=== PATIENT | male | born 1940 | race Caucasian/White ===

== ENCOUNTER → 2017-04-17 | Outpatient (CLI) | payer MEDICARE ==
[~2017-04-17] MED LIST: ASPCH81X PO; ATEN-173 PO; FINA5TAB PO; GLC/500 PO; HYDR-5688 PO; IBUP-103 PO; INSDGI SC; LOSA50TA6 PO; METF1000 PO; MULT-506 PO; PRLSR20 PO; ROPI0.5T15 PO; ROSU20TA PO; TAMS0.4C38 PO; TEMA30CA4 PO; TMPOPS15 OPB; TRAV0.00 OPB; VITAMIN C PO; ZINC1CAP PO
--- NOTE | 2017-04-17 15:55 | DIAGNOSTIC IMAGING REPORT ---
PET/CT HEAD AND NECK PROTOCOL CLINICAL HISTORY: Malignant neoplasm, supraglottis. TECHNIQUE: A PET/CT was performed from the skull base through the upper thighs following intravenous injection of 12.75 mCi of F 18 FDG IV. The injection was performed at 12:04 PM on April 17, 2017 and imaging began at 1:05 PM on April 17, 2017. Unenhanced CT was performed for attenuation correction purposes and anatomic localization. COMPARISON STUDY: None. FINDINGS: Head and neck: Intracranial contents are unremarkable on this unenhanced exam. Note is made of asymmetric thickening of the left aspect of the epiglottis with a corresponding mass that measures approximately 2.8 x 1.3 cm. This has marked FDG uptake with an SUV max of 13.5. Note is made of an FDG avid left level 2 lymph node shown image 27 that measures 1.1 x 0.8 cm with an SUV max of 6.6. There is an additional left level 2 lymph node shown on image 33 measures 1.4 x 1.1 cm with marked FDG uptake and an SUV max of 6.2. There is a normal sized right level 2 lymph node shown on image 31 that measures 1 x 0.8 cm with mild cortical thickening and moderate FDG uptake with an SUV max of 4.8. No additional suspicious cervical lymph nodes are identified. Chest: A prominent right paratracheal lymph node shown image 60 measures 9 mm in short axis diameter but has no FDG uptake. This is benign. Moderate cardiomegaly is noted. Lungs are suboptimally assessed due to respiratory motion. There is moderate emphysema. Note is made of a 3 mm lingular nodule shown image 82 and a 3 mm subpleural right middle lobe nodule shown image 90. These are below size threshold for evaluation by PET. No suspicious FDG uptake is identified within the chest. Abdomen and Pelvis: Water attenuation bilateral renal lesions are suboptimally assessed on this exam but favor cysts. There are gallstones within the gallbladder. The infrarenal abdominal aorta is ectatic, measuring 2.8 cm. There is colonic diverticulosis without evidence for acute diverticulitis. There is no abnormal FDG uptake within the abdomen or the pelvis. Musculoskeletal: No suspicious skeletal uptake is identified. IMPRESSION: 1. FDG avid mass centered within the left aspect of the epiglottis consistent with known squamous cell carcinoma. 2. Two mildly enlarged left level 2 FDG avid cervical lymph nodes consistent with paradise spread of disease. Nonenlarged but FDG avid right level 2 cervical lymph node consistent with contralateral paradise spread of disease. No evidence of distant metastatic disease. 3. 3 mm lingular and right middle lobe nodules which are likely benign. A chest CT in 6 months to ensure stability is recommended. 4. Moderate emphysema. Electronically signed by: Eagle Khan M.D. 04/17/2017 3:54 PM Dictated Date/Time: 04/17/2017 2:34 PM
== END | disposition home or self-care (01) ==
LOC: C.PET 11:21
PROVIDERS: ATTEND Otolaryngology
DX: C32.1 Malignant neoplasm of supraglottis (principal)

== ENCOUNTER → 2017-05-24 | Day surgery (SDC) | payer MEDICARE ==
[2017-05-23 08:29] VITALS: Ht 160 cm; Wt 81.8 kg
[~2017-05-24] VITALS: Ht 160 cm; Wt 81.8 kg
[~2017-05-24] MED LIST changes: +ACET-1693 PO; +ASCA500 PO; -ASPCH81X PO; +ASPI81TA28 PO; +CLIN300C2 PO; +CLINDAMYCIN IV 900 MG in DEXTROSE 5% 100ML 100 ML IV STA; +CPR500 PEG; +DAPA1TAB8 PO; +FENTANYL CITRATE INJ 50 MCG/1 ML 2 ML VIAL ONE; +FLUC200T PO; +FNTTP50 TD; -IBUP-103 PO; +LIDOCAINE HCL 2% 2 ML VIAL (20MG/ML) ONE; +MIDAZOLAM HCL 1 MG/ML 2ML VIAL ONE; +MULTTAB5 PO; +ONDA8TAB62 SL; +ONDANSETRON INJ 2 MG/ML 2 ML VIAL ONE; +OXYC-57 PO; +POLY335019 PO; +PRED20TA PO; +PROPOFOL IV EMULSION 10 MG/ML 20 ML VIAL IV ONE; +PSYL48.59 PO; +SENNTAB23 PO; +SODIUM CHLORIDE 0.9% 500ML 500 ML IV ONE
--- NOTE | 2017-05-24 13:37 | Endo History and Physical ---
History & Physical Date of Service: May 24, 2017. Chief Complaint: dysphagia, peg tube placement Referring Physician: Dr. Cali Haines History of Present Illness PEG Past Surgical History Hx Cardiac Surgery: Yes (HEART CATH-NO STENTS) Hx Internal Defibrillator: No Hx Pacemaker: No Hx Abdominal Surgery: No Hx of Implantable Prosthesis: No Hx Post-Op Nausea and Vomiting: No Hx Cancer Surgery: Yes (LIP SKIN EXCISION) Hx Thoracic Surgery: No Hx Orthopedic: Yes (RT ANKLE SX (SCREW)) Hx Urinary Tract Surgery: No Family History None Social History Smoking Status: Former Smoker Hx Substance Use: No Hx Alcohol Use: Yes (1 BEER WEEKLY) Allergies Coded Allergies: Shellfish (Verified Allergy, Intermediate, FACIAL SWELLING, 05/23/17) Penicillins (Verified Allergy, Unknown, ? REMEMBER, 05/23/17) Current Medications Reported Home Medications Medications Dose Route/Sig Max Daily Dose Days Date Category Tylenol (Acetaminophen) 325 Mg Tab 650 Mg PO Q6H PRN 05/23/17 Reported Metamucil (Psyllium) 48.57 % Pow 1 Tsp PO DAILY 05/02/17 Reported Miralax (Polyethylene Glycol 3350) 1 Pow Pow 17 Gm PO DAILY 05/02/17 Reported Farxiga (Dapagliflozin Propanediol) 10 Mg Tab 1 Tab PO QPM 05/02/17 Reported [place] 5MG/325MG (Acetaminophen/Hydrocodone Bitart) Tab 2 Tablets PO Q4 PRN 04/04/17 Rx Travatan Z (Travoprost) 0.004 % Trevon 1 Drops OPB HS 03/28/17 Reported [Vitamin C] 1 Tab PO DAILY 03/28/17 Reported Zinc Sulfate 220 Mg Cap 220 Mg PO DAILY 03/28/17 Reported Multivitamin (Multivitamins) Tab 1 Tab PO DAILY 03/28/17 Reported Lantus (Insulin Glargine) 100 Unit/Ml Inj 35 Units SC QPM 03/28/17 Reported Flomax (Tamsulosin Hcl) 0.4 Mg Cap 0.4 Mg PO HS 03/28/17 Reported Restoril (Temazepam) 30 Mg Cap 30 Mg PO HS 03/28/17 Reported Timolol 0.5% Oph Soln 15 Ml (Timolol Maleate) 15 Ml Soln 1 Drop OPB QAM 03/28/17 Reported Prilosec (Omeprazole) 20 Mg Capcr 20 Mg PO BID 03/28/17 Reported Cozaar (Losartan Potassium) 50 Mg Tab 50 Mg PO QPM 03/28/17 Reported Tenormin (Atenolol) 25 Mg Tab 25 Mg PO QAM 03/28/17 Reported Crestor (Rosuvastatin Calcium) 20 Mg Tab 20 Mg PO HS 03/28/17 Reported Proscar (Finasteride) 5 Mg Tab 5 Mg PO HS 03/28/17 Reported Requip (Ropinirole HCl) 0.5 Mg Tab 0.5 Mg PO HS 03/28/17 Reported Glucophage (Metformin Hcl) 1,000 Mg Tab 1,000 Mg PO BID 03/28/17 Reported Glucophage (Metformin Hcl) 500 Mg Tab 500 Mg PO BID 03/28/17 Reported Vital Signs Weight (Kilograms): 81.82 Height (Feet): 5 Height (Inches): 3 Date Time Temp Pulse Resp B/P (MAP) Pulse Ox O2 Delivery O2 Flow Rate FiO2 05/24/17 12:49 36.8 68 20 125/69 (87) 94 Room Air Physical Exam General Appearance: WD/WN, no apparent distress Respiratory/Chest: Auscultation: breath sounds normal Cardiovascular: Heart Auscultation: RRR Abdomen: Bowel Sounds: normal Inspection & Palpation: soft, non-distended, no tenderness, guarding & rebound Assessment and Plan PEG for dysphagia
--- NOTE | 2017-05-24 14:35 | Anesthesiology Progress Note ---
Anesthesia Post Op Note Date & Time May 24, 2017 at 14:35 Vital Signs Pain Intensity: 0 Vital Signs Past 12 Hours Date Time Temp Pulse Resp B/P (MAP) Pulse Ox O2 Delivery O2 Flow Rate FiO2 05/24/17 12:49 36.8 68 20 125/69 (87) 94 Room Air Notes Mental Status: alert / awake / arousable, participated in evaluation Pt Amnestic to Procedure: Yes Nausea / Vomiting: adequately controlled Pain: adequately controlled Airway Patency, RR, SpO2: stable & adequate BP & HR: stable & adequate Hydration State: stable & adequate Anesthetic Complications: no major complications apparent
--- NOTE | 2017-05-24 14:50 | GI REPORT ---
Procedure Date: 05/24/2017 1:08 PM Procedure: Upper GI endoscopy Indications: Esophageal dysphagia, Personal history of malignant neoplasm Medicines: Propofol per Anesthesia, Cleocin 900 mg IV Complications: No immediate complications. Estimated blood loss: Minimal. Estimated Blood Loss: Estimated blood loss was minimal. Procedure: Pre-Anesthesia Assessment: - Prior to the procedure, a History and Physical was performed, and patient medications and allergies were reviewed. The patient's tolerance of previous anesthesia was also reviewed. The risks and benefits of the procedure and the sedation options and risks were discussed with the patient. All questions were answered, and informed consent was obtained. Prior Anticoagulants: The patient has taken no previous anticoagulant or antiplatelet agents. ASA Grade Assessment: II - A patient with mild systemic disease. After reviewing the risks and benefits, the patient was deemed in satisfactory condition to undergo the procedure. After obtaining informed consent, the endoscope was passed under direct vision. Throughout the procedure, the patient's blood pressure, pulse, and oxygen saturations were monitored continuously. The scope was introduced through the mouth, and advanced to the second part of duodenum. The upper GI endoscopy was accomplished without difficulty. The patient tolerated the procedure well. Findings: The examined esophagus was normal. The entire examined stomach was normal. The examined duodenum was normal. The cardia and gastric fundus were normal on retroflexion. The gastric body was normal. The patient was placed in the supine position for PEG placement. The stomach was insufflated to appose gastric and abdominal nelson. A site was located in the body of the stomach with excellent transillumination and manual external pressure for placement. The abdominal wall was marked and prepped in a sterile manner. The area was anesthetized with 3 mL of 1% lidocaine. The trocar needle was introduced through the abdominal wall and into the stomach under direct endoscopic view. A snare was introduced through the endoscope and opened in the gastric lumen. The guide wire was passed through the trocar and into the open snare. The snare was closed around the guide wire. The endoscope and snare were removed, pulling the wire out through the mouth. A skin incision was made at the site of needle insertion. The externally removable 20 Fr Yonny-Stentys gastrostomy tube was lubricated. The G-tube was tied to the guide wire and pulled through the mouth and into the stomach. The trocar needle was removed, and the gastrostomy tube was pulled out from the stomach through the skin. The external bumper was attached to the gastrostomy tube, and the tube was cut to remove the guide wire. The final position of the gastrostomy tube was confirmed by relook endoscopy, and skin marking noted to be 2 cm at the external bumper. The final tension and compression of the abdominal wall by the PEG tube and external bumper were checked and revealed that the bumper was loose and lightly touching the skin and that the PEG balloon was loose and lightly touching the stomach. The feeding tube was capped, and the tube site cleaned and dressed. Impression: - Normal esophagus. - Normal stomach. - Normal examined duodenum. - Normal gastric body. - An externally removable PEG placement was successfully completed. - No specimens collected. Recommendation: - Discharge patient to home (ambulatory). - Advance diet as tolerated. - Please follow the post-PEG recommendations including: Nutrition consult for formula and volume. - Return to referring physician as previously scheduled. MD Rafael Batista MD 05/24/2017 2:49:31 PM This report has been signed electronically. Note Initiated On: 05/24/2017 1:08 PM I attest to the content of the Intraoperative Record and orders documented therein, exceptions below
--- NOTE | 2017-05-24 14:55 | Discharge Instructions ---
Endoscopy Patient Instructions Date / Procedure(s) Performed May 24, 2017. EGD Allergy Information Coded Allergies: Shellfish (Verified Allergy, Intermediate, FACIAL SWELLING, 05/23/17) Penicillins (Verified Allergy, Unknown, ? REMEMBER, 05/23/17) Discharge Date / Findings May 24, 2017. PEG placement Medication Instructions Stopped Medication(s): Metformin and multivitamin were held. Restart Stopped Medication(s): Reported Home Medications Medications Dose Route/Sig Max Daily Dose Days Date Category Tylenol (Acetaminophen) 325 Mg Tab 650 Mg PO Q6H PRN 05/23/17 Reported Metamucil (Psyllium) 48.57 % Pow 1 Tsp PO DAILY 05/02/17 Reported Miralax (Polyethylene Glycol 3350) 1 Pow Pow 17 Gm PO DAILY 05/02/17 Reported Farxiga (Dapagliflozin Propanediol) 10 Mg Tab 1 Tab PO QPM 05/02/17 Reported [place] 5MG/325MG (Acetaminophen/Hydrocodone Bitart) Tab 2 Tablets PO Q4 PRN 04/04/17 Rx Travatan Z (Travoprost) 0.004 % Trevon 1 Drops OPB HS 03/28/17 Reported [Vitamin C] 1 Tab PO DAILY 03/28/17 Reported Zinc Sulfate 220 Mg Cap 220 Mg PO DAILY 03/28/17 Reported Multivitamin (Multivitamins) Tab 1 Tab PO DAILY 03/28/17 Reported Lantus (Insulin Glargine) 100 Unit/Ml Inj 35 Units SC QPM 03/28/17 Reported Flomax (Tamsulosin Hcl) 0.4 Mg Cap 0.4 Mg PO HS 03/28/17 Reported Restoril (Temazepam) 30 Mg Cap 30 Mg PO HS 03/28/17 Reported Timolol 0.5% Oph Soln 15 Ml (Timolol Maleate) 15 Ml Soln 1 Drop OPB QAM 03/28/17 Reported Prilosec (Omeprazole) 20 Mg Capcr 20 Mg PO BID 03/28/17 Reported Cozaar (Losartan Potassium) 50 Mg Tab 50 Mg PO QPM 03/28/17 Reported Tenormin (Atenolol) 25 Mg Tab 25 Mg PO QAM 03/28/17 Reported Crestor (Rosuvastatin Calcium) 20 Mg Tab 20 Mg PO HS 03/28/17 Reported Proscar (Finasteride) 5 Mg Tab 5 Mg PO HS 03/28/17 Reported Requip (Ropinirole HCl) 0.5 Mg Tab 0.5 Mg PO HS 03/28/17 Reported Glucophage (Metformin Hcl) 1,000 Mg Tab 1,000 Mg PO BID 03/28/17 Reported Glucophage (Metformin Hcl) 500 Mg Tab 500 Mg PO BID 03/28/17 Reported Reported Home Medications Medications Dose Route/Sig Max Daily Dose Days Date Category Tylenol (Acetaminophen) 325 Mg Tab 650 Mg PO Q6H PRN 05/23/17 Reported Metamucil (Psyllium) 48.57 % Pow 1 Tsp PO DAILY 05/02/17 Reported Miralax (Polyethylene Glycol 3350) 1 Pow Pow 17 Gm PO DAILY 05/02/17 Reported Farxiga (Dapagliflozin Propanediol) 10 Mg Tab 1 Tab PO QPM 05/02/17 Reported [place] 5MG/325MG (Acetaminophen/Hydrocodone Bitart) Tab 2 Tablets PO Q4 PRN 04/04/17 Rx Travatan Z (Travoprost) 0.004 % Trevon 1 Drops OPB HS 03/28/17 Reported [Vitamin C] 1 Tab PO DAILY 03/28/17 Reported Zinc Sulfate 220 Mg Cap 220 Mg PO DAILY 03/28/17 Reported Multivitamin (Multivitamins) Tab 1 Tab PO DAILY 03/28/17 Reported Lantus (Insulin Glargine) 100 Unit/Ml Inj 35 Units SC QPM 03/28/17 Reported Flomax (Tamsulosin Hcl) 0.4 Mg Cap 0.4 Mg PO HS 03/28/17 Reported Restoril (Temazepam) 30 Mg Cap 30 Mg PO HS 03/28/17 Reported Timolol 0.5% Oph Soln 15 Ml (Timolol Maleate) 15 Ml Soln 1 Drop OPB QAM 03/28/17 Reported Prilosec (Omeprazole) 20 Mg Capcr 20 Mg PO BID 03/28/17 Reported Cozaar (Losartan Potassium) 50 Mg Tab 50 Mg PO QPM 03/28/17 Reported Tenormin (Atenolol) 25 Mg Tab 25 Mg PO QAM 03/28/17 Reported Crestor (Rosuvastatin Calcium) 20 Mg Tab 20 Mg PO HS 03/28/17 Reported Proscar (Finasteride) 5 Mg Tab 5 Mg PO HS 03/28/17 Reported Requip (Ropinirole HCl) 0.5 Mg Tab 0.5 Mg PO HS 03/28/17 Reported Glucophage (Metformin Hcl) 1,000 Mg Tab 1,000 Mg PO BID 03/28/17 Reported Glucophage (Metformin Hcl) 500 Mg Tab 500 Mg PO BID 03/28/17 Reported Provider Instructions Activity Restrictions - No exercising or heavy lifting for 24 hours. - Do not drink alcohol the day of the procedure. - Do not drive a car or operate machinery until the day after the procedure. - Do not make any important decisions or sign important papers in 24 hours after the procedure. Following Day: - Return to full activity which may include returning to work/school. Diet Start your diet with liquids and light foods (jello, soup, juice, toast). Then eat your usual diet if not nauseated. Treatment For Common After Affects For mild abdominal pain, bloating, or excessive gas: - Rest - Eat lightly - Lie on right side Follow-Up Information Follow-up with Dr. Cali Haines as scheduled Anesthesia Information What You Should Know You have had a procedure that required some medicine to reduce anxiety and discomfort. This treatment is called moderate sedation. After receiving the treatment, you may be sleepy, but you will be able to breathe on your own. The effects of the treatment may last for several hours. Follow these instructions along with Activity/Diet recommendations noted above: * Do NOT do anything where dizziness or clumsiness would be dangerous. * Rest quietly at home today, then you can be up and about tomorrow. * Have a responsible person stay with you the rest of today. * You may have had an I.V. today. If so, you may take the dressing off later today. Recommendations Call your doctor if: * Trouble breathing * Continuous vomiting for more than 24 hours * Temperature above 101 degrees * Severe abdominal pain or bloating * Pain not relieved by pain medicine ordered * There is increased drainage or redness from any incision * A large amount of rectal bleeding greater than 2-3 tablespoons. (If you had a polyp/s removed or have hemorrhoids, a small amount of blood - from the rectum is to be expected.) * You have any unanswered questions or concerns. IN THE EVENT OF A SERIOUS EMERGENCY, GO TO THE NEAREST EMERGENCY ROOM Your discharge instructions were prepared by provider Rafael Anthony. Patient Instructions Signature Page Tristen Ewing Patient (or Guardian) Signature/Date: I have read and understand the instructions given to me by my caregivers. Caregiver/RN/Doctor Signature/Date: The above-named patient and/or guardian has received patient instructions on this date. + Original Patient Signature Page (only) stays with chart. Please make copy for patient.
[2017-05-24 15:02] VITALS: BP 120/76; PULSE 72; O2SAT 95
--- NOTE | 2017-05-25 12:31 | GASTROENTEROLOGY PROGRESS NOTE ---
DATE: 05/25/2017 TIME: 11:30 a.m. SUBJECTIVE: I spoke to the patient again today at approximately 11:20 a.m. Mrs. Ewing reports that the patient did well overnight with decreased abdominal pressure and discomfort. I had spoken with her last evening (Saturday) around 7:00 as she called through the answering service reporting that the patient had abdominal pain after eating tomato soup, grilled cheese and mild products, a few hours after peg placement. Last evening, I had asked her to stick mostly with clear liquids in small amounts for the remainder of the night and can slowly begin to advance diet on Saturday. When I spoke with her a short time ago(Saturday), she said that she was just awakening up, but there were no reports of fever, abdominal pain overnight. I again asked her to go mostly with clear liquids or either full liquids this morning and afternoon, in small frequent volumes. At that point, if he is doing well, he can start to advance his meals to a light diet this evening and progress towards is routine diet afterwards. I also spoke with her regarding questions of the Y connection and that both ports should be irrigated, each day to maintain patency. All of her questions were answered. She knows to contact the service or present to the Emergency Room if there are any acute changes. KELLIE
== END | disposition home or self-care (01) ==
LOC: C.GI 11:24
PROVIDERS: ATTEND Internal Medicine Gastroenterology
DX: R13.10 Dysphagia, unspecified (principal); Z79.4 Long term (current) use of insulin; Z79.899 Other long term (current) drug therapy; Z79.84 Long term (current) use of oral hypoglycemic drugs

== ENCOUNTER 2017-05-29 06:40 | Day surgery (SDC) | payer MEDICARE ==
[2017-05-23 08:41] VITALS: BMI 31.0
[~2017-05-29] VITALS: Ht 160 cm; Wt 78.5 kg
[~2017-05-29 06:40] MED LIST changes: -ASCA500 PO; -ASPI81TA28 PO; +ATROPINE SULFATE 0.1 MG/ML 5ML SYR IV PRN; -CLIN300C2 PO; +CLINDAMYCIN 900MG IV SCH; -CLINDAMYCIN IV 900 MG in DEXTROSE 5% 100ML 100 ML IV STA; +CLINDAMYCIN IV 900 MG in DEXTROSE 5% 50ML IV SCH; -CPR500 PEG; +EpHEDrine SULFATE INJ 50 MG/ML AMP IV PRN; +FENTANYL CITRATE INJ 50 MCG/1 ML 2 ML VIAL IV PRN; -FENTANYL CITRATE INJ 50 MCG/1 ML 2 ML VIAL ONE; -FLUC200T PO; -FNTTP50 TD; +HYDROmorphone INJ 1 MG/ML SYR IV PRN; +LACTATED RINGER'S 1000ML 1,000 ML IV SCH; -LIDOCAINE HCL 2% 2 ML VIAL (20MG/ML) ONE; -MIDAZOLAM HCL 1 MG/ML 2ML VIAL ONE; -MULTTAB5 PO; -ONDA8TAB62 SL; +ONDANSETRON INJ 2 MG/ML 2 ML VIAL IV PRN; -ONDANSETRON INJ 2 MG/ML 2 ML VIAL ONE; -OXYC-57 PO; -PRED20TA PO; -PROPOFOL IV EMULSION 10 MG/ML 20 ML VIAL IV ONE; -SENNTAB23 PO; -SODIUM CHLORIDE 0.9% 500ML 500 ML IV ONE
[2017-05-29 07:00] VITALS: BP 125/69; PULSE 82; TEMP 37.5; O2SAT 94; Ht 160 cm; Wt 78.5 kg
[2017-05-29] MEDS ORDERED: FNTTP50 TD (07:22)
[2017-05-29 08:03] LABS: HEMATOCRIT 33.1 % (42-52); HEMOGLOBIN 11.7 g/dL (14.0-18.0); MEAN CELL VOLUME 86.4 fL (80-100); MEAN CORPUSCULAR HEMOGLOBIN 30.5 pg (25-34); RED CELL DISTRIBUTION WIDTH CV 15.2 % (11.5-14.5); RED CELL DISTRIBUTION WIDTH SD 47.7 fL (36.4-46.3); WHITE BLOOD COUNT 10.74 K/uL (4.8-10.8)
[2017-05-29 08:06] LABS: MEAN CORPUSCULAR HGB CONC 35.3 g/dl (32-36)
[2017-05-29 08:23] LABS: MEAN PLATELET VOLUME 9.9 fL (7.4-10.4); PLATELET COUNT 92 K/uL (130-400)
[2017-05-29] MEDS ORDERED: FENTANYL CITRATE INJ 50 MCG/1 ML 2 ML VIAL ONE (08:51)
[2017-05-29] MEDS ORDERED: MIDAZOLAM HCL 1 MG/ML 2ML VIAL ONE ×2 (08:51→09:23)
--- NOTE | 2017-05-29 08:51 | History & Physical Bridge Note ---
H&P Re-Evaluation Bridge Note: I have examined the patient, reviewed the History & Physical and in the interval since the performance of the History & Physical I have noted the following changes of clinical significance: No changes noted
[2017-05-29] MEDS ORDERED: ONDANSETRON INJ 2 MG/ML 2 ML VIAL ONE (08:55)
[2017-05-29] MEDS ORDERED: LIDOCAINE HCL 2% 2 ML VIAL (20MG/ML) ONE (08:55)
[2017-05-29] MEDS ORDERED: BUPIVACAINE 0.5 % 5 MG/1 ML MPF 30ML VIAL ONE (08:56)
[2017-05-29] MEDS ORDERED: LIDOCAINE/EPINEPHRINE 1% 20 ML VIAL ONE (08:56)
[2017-05-29] MEDS ORDERED: HEPARIN SOD (PORCINE) 5000 UNIT/ML 1 ML VIAL ONE (08:59)
[2017-05-29] MEDS ORDERED: PROPOFOL IV EMULSION 10 MG/ML 20 ML VIAL IV ONE ×2 (09:23→10:45)
[2017-05-29] MEDS ORDERED: CONRAY 30% 150ML BOTTLE ONE (10:14)
[2017-05-29] MEDS ORDERED: OPTIRAY 300 IV ONE (10:17)
[2017-05-29] MEDS ORDERED: EpHEDrine SULFATE 50MG/5ML SYR ONE (10:46)
[2017-05-29] MEDS ORDERED: PHENYLEPHRINE 100MCG/ML 5ML SYR ONE (10:46)
--- NOTE | 2017-05-29 10:49 | [facility] Post Operative Brief Note ---
Immediate Operative Summary Operative Date May 29, 2017. Pre-Operative Diagnosis Epiglottis Cancer Post-Operative Diagnosis Epiglottis Cancer Procedure(s) Performed Insertion of Mediport with Fluoroscopy Surgeon Dr. Blanca Counter Supply Worker Surgeon(s) Romy Houston PA-C Estimated Blood Loss 8 mL Findings Access in the left internal jugular vein with ultrasound guidance performed. After placement of the port we were unable to draw blood but it seemed to flush adequately. Contrast was then placed through the port and it appeared that we were either in a small branch vessel or extravascular. Port was removed and we reattempted access of the left internal jugular but the wire would not pass into the superior vena cava. We then accessed the left subclavian vein without difficulty and the wire was placed in the superior vena cava. The port was placed and it kayla and flushed easily. Specimens None per surgeon Drains none Anesthesia MAC/local Complication(s) None Disposition Recovery Room / PACU
[2017-05-29] MEDS ORDERED: SODIUM CHLORIDE 0.9% 1000ML 1,000 ML IV SCH (11:00)
[2017-05-29] MEDS ORDERED: ONDANSETRON INJ 2 MG/ML 2 ML VIAL IV PRN (11:00)
[2017-05-29] MEDS ORDERED: OXYCODONE/ACETAMINOPHEN 5-325 TAB PO PRN ×2 (11:00)
--- NOTE | 2017-05-29 11:00 | [facility] Operative Report ---
Operative Report Operative Date May 29, 2017. Pre-Operative Diagnosis Epiglottis Cancer Post-Operative Diagnosis same Procedure(s) Performed Left subclavian vein PowerPort placement Surgeon Dr. Blanca Home Care Chaplain Surgeon(s) Romy Houston PA-C Estimated Blood Loss 8 mL Findings Access in the left internal jugular vein with ultrasound guidance performed. After placement of the port we were unable to draw blood but it seemed to flush adequately. Contrast was then placed through the port and it appeared that we were either in a small branch vessel or extravascular. Port was removed and we reattempted access of the left internal jugular but the wire would not pass into the superior vena cava. We then accessed the left subclavian vein without difficulty and the wire was placed in the superior vena cava. The port was placed and it kayla and flushed easily. Specimens None per surgeon Drains none Anesthesia MAC/local Complication(s) None Disposition Recovery Room / PACU Indications 76-year-old male with recently diagnosed epiglottis cancer, requires port placement for chemotherapy access. Plan for port placement. The risks of the procedure were discussed, all questions were answered, and the patient agreed to proceed with surgery as planned. Description of Procedure The patient was properly identified, consented, and taken to the operating room where he was placed in the supine position with both arms tucked and a shoulder roll placed vertically. Monitored anesthesia care was induced. SCDs and a safety belt were placed. Preoperative antibiotics were administered. The patient's chest and neck was prepped and draped in the standard sterile fashion. Surgical timeout was performed and all parties were in agreement that this was the correct patient and procedure to be performed and we continued as planned. The patient was placed in Trendelenburg position. Local anesthetic was injected along the skin incision. Using real-time ultrasound guidance the left internal jugular vein was accessed. The wire was placed and appeared to go into the superior vena cava on fluoroscopy. A transverse skin incision was made in the left chest and a pocket was created for the port. The tunneling device was used to pull the port through the chest incision and into the neck incision. The dilator and peel-away sheath were inserted over the wire. The catheter was then inserted through the peel-away sheath and fluoroscopy confirmed placement into the superior vena cava. The catheter was cut and attached to the port. We attempted to draw blood from the port but this was unsuccessful. It seemed to flush without difficulty. We repositioned the catheter and again attempted to draw blood, however there was significant resistance. We then used IV contrast and it appeared that we were either in a small branch vessel or were extravascular. The port was removed, we attempted to re-access the left internal jugular vein which was successful. However, the wire was unable to be placed into the superior vena cava. At this point we decided to access the left subclavian vein. The left subclavian vein was accessed on the first attempt without difficulty. The wire was placed and passed into the superior vena cava. A new introducer and peel- away sheath was placed and the wire and introducer were removed. A new catheter was then placed into the left subclavian vein and fluoroscopy confirmed entry into the superior vena cava. Catheter was cut and attached to the port. The port was secured into place with 3-0 Prolene sutures. A final x- ray revealed good placement of the port. The wound was irrigated and hemostasis was confirmed. The skin was closed with interrupted 3-0 Vicryl deep dermal sutures, followed by 4-0 Monocryl running subcuticular suture. Dermabond was placed over the wound. The port was accessed and kayla blood easily and flushed easily. It was flushed with heparinized saline. The physician's fast food sales assistant was essential for positioning, access, retraction and exposure, and closure. The patient taken to the PACU where he recovered without apparent incident. All sponge, instrument and needle counts were correct at the conclusion of the procedure. The patient tolerated the procedure well. Chest x-ray was pending at the conclusion of the case. I attest to the content of the Intraoperative Record and any orders documented therein. Any exceptions are noted below.
--- NOTE | 2017-05-29 11:04 | Discharge Instructions ---
Discharge Instructions Date of Service May 29, 2017. 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 Instructions / Follow-Up Instructions / Follow-Up Please follow-up with Dr. Blanca in 1-2 weeks for incision check. Please call the office at [phone] to make a follow-up appointment if you do not have one already. Please call the office with any questions or concerns. Current Hospital Diet Patient's current hospital diet: Discharge Diet Recommended Diet: Regular Diet Procedures Procedures Performed: Insertion of Mediport with Fluoroscopy Pending Studies Studies pending at discharge: no Medical Emergencies . Who to Call and When: Medical Emergencies: If at any time you feel your situation is an emergency, please call 911 immediately. . Non-Emergent Contact Non-Emergency issues call your: Primary Care Provider, Surgeon Call Non-Emergent contact if: temperature is above 101.5, your pain is not controlled, wound has increased drainage, wound has increased redness . "Provider Documentation" section prepared by Romy Cutler. . VTE Core Measure Inpt VTE Proph given/why not?: SCD's [place] Drug Monitoring Program Search Results: patient reviewed within database, no issues identified
--- NOTE | 2017-05-29 11:30 | DIAGNOSTIC IMAGING REPORT ---
CHEST ONE VIEW PORTABLE HISTORY: s/p port placement COMPARISON: PET CT 04/17/2017. FINDINGS: Low lung volumes with mild interstitial thickening which is likely chronic. No pleural effusions. No pneumothorax. Left subclavian Port-A-Cath terminates at the superior caval atrial junction. The heart is mildly enlarged. This may be accentuated by the low lung volumes. IMPRESSION: Left subclavian Port-A-Cath terminates at the superior cavoatrial junction. No pneumothorax. Electronically signed by: Charan Nash M.D. 05/29/2017 11:28 AM Dictated Date/Time: 05/29/2017 11:17 AM
[2017-05-29 11:50] VITALS: BP 106/58; PULSE 87; TEMP 36.3; O2SAT 94
--- NOTE | 2017-05-29 11:53 | Anesthesiology Progress Note ---
Anesthesia Post Op Note Date & Time May 29, 2017 at 11:53 Vital Signs Pain Intensity: 2 Vital Signs Past 12 Hours Date Time Temp Pulse Resp B/P (MAP) Pulse Ox O2 Delivery O2 Flow Rate FiO2 05/29/17 11:50 36.3 85 16 106/58 94 Room Air 05/29/17 11:35 36.3 85 16 103/58 94 Room Air 05/29/17 11:20 36.3 83 16 100/58 93 Room Air 05/29/17 11:10 83 16 93/53 99 Oxymask 7 05/29/17 11:00 36 85 16 81/54 99 Oxymask 7 05/29/17 07:00 37.5 82 20 125/69 (87) 94 Room Air Notes Mental Status: alert / awake / arousable, participated in evaluation Pt Amnestic to Procedure: Yes Nausea / Vomiting: adequately controlled Pain: adequately controlled Airway Patency, RR, SpO2: stable & adequate BP & HR: stable & adequate Hydration State: stable & adequate Anesthetic Complications: no major complications apparent Doing well. No complaints. VSS.
[2017-05-29 12:12] VITALS: BP 105/56; PULSE 87; TEMP 36.9; O2SAT 92
--- NOTE | 2017-05-29 12:36 | [facility] Operative Report ---
Operative Report Operative Date May 29, 2017. Pre-Operative Diagnosis Epiglottis Cancer Post-Operative Diagnosis same Surgeon Dr. Blanca Findings Fluoroscopy was used for placement of the left subclavian vein port. A total of 158 seconds fluoroscopy time was performed. I attest to the content of the Intraoperative Record and any orders documented therein. Any exceptions are noted below.
[2017-05-29 12:45] VITALS: BP 93/54; PULSE 87; TEMP 37.1; O2SAT 91
[2017-05-29 13:15] VITALS: BP 100/56; PULSE 85; TEMP 37.2; O2SAT 91
[2017-05-29 13:44] VITALS: BP 104/63; PULSE 91; TEMP 37.2; O2SAT 93
[2017-06-11] MEDS ORDERED: OXYC-57 PO (14:59)
[2017-07-22] MEDS ORDERED: ONDA8TAB62 SL (09:44)
[2017-11-29] MEDS ORDERED: INSDGI SC (13:30)
[2017-11-29] MEDS ORDERED: ASCA500 PO (13:33)
[2017-11-29] MEDS ORDERED: ASPI81TA28 PO (13:33)
[2017-11-29] MEDS ORDERED: MULTTAB5 PO (13:33)
[2017-11-29] MEDS ORDERED: ZINC1CAP PO (13:33)
[2017-12-12] MEDS ORDERED: TAMS0.4C38 PO (15:55)
[2017-12-12] MEDS ORDERED: ROSU20TA PO (15:55)
[2017-12-12] MEDS ORDERED: CLIN300C2 PO (19:20)
[2017-12-12] MEDS ORDERED: PRED20TA PO (19:20)
== END 2017-05-29 13:47 | disposition home or self-care (01) ==
LOC: C.ACU 06:40
PROVIDERS: ATTEND Surgery
DX: C32.1 Malignant neoplasm of supraglottis (principal); I87.8 Other specified disorders of veins; K21.9 Gastro-esophageal reflux disease without esophagitis; M19.90 Unspecified osteoarthritis, unspecified site; H40.9 Unspecified glaucoma; E78.00 Pure hypercholesterolemia, unspecified; I10 Essential (primary) hypertension; G47.33 Obstructive sleep apnea (adult) (pediatric); Z99.89 Dependence on other enabling machines and devices; E11.9 Type 2 diabetes mellitus without complications; Z85.818 Personal history of malignant neoplasm of other sites of lip, oral cavity, and pharynx; Z83.1 Family history of other infectious and parasitic diseases; Z82.49 Family history of ischemic heart disease and other diseases of the circulatory system; Z83.3 Family history of diabetes mellitus; Z80.1 Family history of malignant neoplasm of trachea, bronchus and lung; Z80.42 Family history of malignant neoplasm of prostate; Z87.891 Personal history of nicotine dependence; Z88.0 Allergy status to penicillin; Z79.4 Long term (current) use of insulin

== ENCOUNTER → 2017-05-31 | Outpatient (CLI) | payer MEDICARE ==
[~2017-05-31] MED LIST changes: +ASCA500 PO; +ASPI81TA28 PO; -ATROPINE SULFATE 0.1 MG/ML 5ML SYR IV PRN; +CLIN300C2 PO; -CLINDAMYCIN 900MG IV SCH; -CLINDAMYCIN IV 900 MG in DEXTROSE 5% 50ML IV SCH; +CPR500 PEG; -EpHEDrine SULFATE INJ 50 MG/ML AMP IV PRN; -FENTANYL CITRATE INJ 50 MCG/1 ML 2 ML VIAL IV PRN; +FLUC200T PO; +FNTTP50 TD; -HYDROmorphone INJ 1 MG/ML SYR IV PRN; -LACTATED RINGER'S 1000ML 1,000 ML IV SCH; +MULTTAB5 PO; +ONDA8TAB62 SL; -ONDANSETRON INJ 2 MG/ML 2 ML VIAL IV PRN; +OXYC-57 PO; +PRED20TA PO
--- NOTE | 2017-05-31 13:49 | DIAGNOSTIC IMAGING REPORT ---
ULTRASOUND OF THE CAROTID ARTERIES CLINICAL HISTORY: Head and neck cancer. COMPARISON STUDY: PET CT dated 04/17/2017. TECHNIQUE: Real-time, grayscale, and color Doppler sonography of the carotid arteries is performed. Images are reviewed in the transverse and longitudinal planes. FINDINGS: Blood pressure in the right arm measures 130/88 and blood pressure in the left arm measures 129/70. The carotid arteries are patent bilaterally and demonstrate antegrade flow. There is mild atherosclerotic plaque seen. Normal doppler arterial waveforms are seen throughout. Velocity measurements are listed below. Common carotid peak systolic velocity (cm/sec): RIGHT: 106 LEFT: 104 ICA proximal peak systolic velocity (cm/sec): RIGHT: 102 LEFT: 111 ICA mid peak systolic velocity (cm/sec): RIGHT: 158 LEFT: 97 ICA distal peak systolic velocity (cm/sec): RIGHT: 129 LEFT: 87 ICA/CC peak systolic ratio: RIGHT: 2.1 LEFT: 1.1 Antegrade flow was shown in the vertebral arteries. The external carotid arteries are patent. A 1.4 cm hypoechoic soft tissue lesion is identified in the right cervical chain, a 2.2 cm hypoechoic lesion is seen in the left cervical chain. These are suspicious for metastatic lymphadenopathy. Additional smaller metastatic lesions are suspected. IMPRESSION: 1. There is no sonographic evidence of hemodynamically significant stenosis in the right or left carotid arterial system. Mildly elevated velocities within the midportion of the right internal carotid artery are likely related to vascular tortuosity. There is no significant stenosis seen in the grayscale images. 2. Antegrade flow is shown in the vertebral arteries. 3. Metastatic cervical lymphadenopathy is suspected bilaterally. Electronically signed by: Rodger Lowery M.D. 05/31/2017 1:48 PM Dictated Date/Time: 05/31/2017 1:44 PM
--- NOTE | 2017-06-05 13:29 | CODING QUERY MEDICAL NECESSITY ---
SUPPORTING DIAGNOSIS NEEDED A supporting diagnosis is required for the test/procedure performed on this patient in order for us to be reimbursed by the patient's insurance. Please provide a supporting diagnosis for the following test/procedure listed below next to the test name along with your signature. *If there is no additional diagnosis for this patient that would support the following test/procedure please document that below next to the test/procedure. Test(s)/Procedure(s) that require a supporting diagnosis: * US CAROTID DOPPLER NECK ARTERY DIAGNOSIS: Provider Signature: Date: Thank you Priti Rubio [employer] Management Once completed, please kindly fax back to [phone] For questions please call [phone]
== END | disposition home or self-care (01) ==
LOC: C.ULTR 12:51
PROVIDERS: ATTEND Physician Assistant Medical
DX: C32.1 Malignant neoplasm of supraglottis (principal)

== ENCOUNTER 2017-06-24 13:11 | Inpatient (IN) | payer MEDICARE, OTHER ==
[~2017-06-24] VITALS: Ht 160 cm; Wt 74.5 kg
[~2017-06-24 13:11] MED LIST changes: -ACET-1693 PO; +ACET325T96 PO; -ASCA500 PO; -ASPI81TA28 PO; -CLIN300C2 PO; -CPR500 PEG; -FLUC200T PO; -HYDR-5688 PO; -MULTTAB5 PO; -ONDA8TAB62 SL; -PRED20TA PO
[2017-06-24] MEDS ORDERED: ONDANSETRON INJ 2 MG/ML 2 ML VIAL IV STA (13:29)
[2017-06-24] MEDS ORDERED: SODIUM CHLORIDE 0.9% 1000ML 1,000 ML IV STA ×2 (13:29→14:41)
[2017-06-24 14:05] LABS: BASO % 0.2 %; BASO ABS # 0.03 K/uL (0-0.2); EOS % 0.1 %; EOS ABS # 0.01 K/uL (0-0.5); HEMATOCRIT 29.9 % (42-52); HEMOGLOBIN 10.4 g/dL (14.0-18.0); IG# 0.63 K/uL (0.00-0.02); LYMPH % 5.3 %; LYMPH ABS # 0.69 K/uL (1.2-3.4); MEAN CELL VOLUME 88.5 fL (80-100); MEAN CORPUSCULAR HEMOGLOBIN 30.8 pg (25-34); MEAN CORPUSCULAR HGB CONC 34.8 g/dl (32-36); MEAN PLATELET VOLUME 9.8 fL (7.4-10.4); MONO % 16.6 %; MONO ABS # 2.16 K/uL (0.11-0.59); NUCLEATED RED BLOOD CELL ABS 0.04 K/uL (0-0); PLATELET COUNT 226 K/uL (130-400); RED CELL DISTRIBUTION WIDTH CV 16.2 % (11.5-14.5); RED CELL DISTRIBUTION WIDTH SD 49.1 fL (36.4-46.3); WHITE BLOOD COUNT 13.02 K/uL (4.8-10.8)
[2017-06-24 14:25] LABS: ALBUMIN 2.7 gm/dl (3.4-5.0); ALT/SGPT 16 U/L (12-78); AST/SGOT 10 U/L (15-37); BLOOD UREA NITROGEN 41 mg/dl (7-18); CALCIUM 8.6 mg/dl (8.5-10.1); CARBON DIOXIDE 29 mmol/L (21-32); CREATININE 1.43 mg/dl (0.60-1.40); GLUCOSE 218 mg/dl (70-99); LIPASE 79 U/L (73-393); POTASSIUM 4.6 mmol/L (3.5-5.1); SODIUM 128 mmol/L (136-145)
[2017-06-24 14:26] LABS: PTT PATIENT 25.2 SECONDS (21.0-31.0)
--- NOTE | 2017-06-24 14:26 | DIAGNOSTIC IMAGING REPORT ---
SINGLE VIEW CHEST CLINICAL HISTORY: Weakness. Nausea and vomiting. Diarrhea. FINDINGS: An AP, portable, upright chest radiograph is compared to study dated 05/29/2017 and correlated with PET/CT dated 04/17/2017. The examination is degraded by portable technique and patient rotation. A left subclavian central venous infusion port is unchanged in position. The heart is mildly enlarged and there is atherosclerotic calcification of the thoracic ureter. The pulmonary vasculature is noncongested. Emphysema and chronic interstitial thickening our similar to previous. No airspace consolidation or pleural effusion is identified. No pneumothorax is seen. The skeletal structures are osteopenic. Degenerative change is seen throughout the thoracic spine. IMPRESSION: Cardiomegaly and emphysema with no acute cardiopulmonary abnormality. Electronically signed by: Rodger Lowery M.D. 06/24/2017 2:25 PM Dictated Date/Time: 06/24/2017 2:20 PM
[2017-06-24 14:36] LABS: ALKALINE PHOSPHATASE 114 U/L (45-117); TOTAL PROTEIN 6.7 gm/dl (6.4-8.2)
[2017-06-24] MEDS ORDERED: MAGNESIUM SULFATE 1GM / D5W 1 GM BAG IV STA (14:41)
--- NOTE | 2017-06-24 15:30 | History and Physical ---
History & Physical Date & Time of Service: Jun 24, 2017 at 15:26 Chief Complaint: Nausea, Vomiting, Diarrhea Primary Care Physician: Cali Haines M.D. History of Present Illness Source: patient This is a 76 yo M with PMHx of SCC of the epiglottis T2, M2 C stage IV, originally diagnosed on 04/04/17 currently undergoing cisplatin and XRT which began on 05/28/17 and is followed by Dr. Costello. Other PMHx includes HTN, HLD, BPH, DM II, GERD, and restless leg syndrome. The patient presents with intractable nausea and vomiting ongoing for the last 2-3 days. He does take in crushed meds orally and tolerates warm liquids. The patient notes losing approximately 18 pounds since the beginning of chemotherapy which is partially due to metallic taste in his mouth, but also due to pain with any swallowing. The patient has a PEG tube and has been using Nutren 2.04 ounces every 2 hours to help reduce the amount of nausea and vomiting. He denies any abdominal pain. The patient's also reports a history of having increased diarrhea in the last 2 days as well. He is feeling increasingly weak and is sleeping a large portion of the day. The patient has undergone 3 rounds of chemotherapy so far, and at least 3 weeks of daily radiation therapy. XRT is scheduled to complete around July 11. Here in the ER, Na= 128, creatinine is elevated at 1.43, WBC =13 K with left shift. Mag = 1.3 and has been replaced with 2 g via IV. Past Medical/Surgical History Medical Problems: (1) DM II (diabetes mellitus, type II), controlled (2) GERD (gastroesophageal reflux disease) (3) Glaucoma (4) HLD (hyperlipidemia) (5) HTN (hypertension) (6) Intractable nausea and vomiting (7) MYRIAM on CPAP (8) Osteoarthritis (9) Squamous cell cancer of epiglottis Surgical Problems: (1) S/P percutaneous endoscopic gastrostomy (PEG) tube placement Family History Pneumonia Heart disease DM II Lung Cancer Prostate cancer Social History Smoking Status: Former Smoker Smokeless Tobacco Use: No Alcohol Use: none Allergies Coded Allergies: Shellfish (Verified Allergy, Intermediate, FACIAL SWELLING, 06/24/17) Penicillins (Verified Allergy, Unknown, ? REMEMBER, 06/24/17) Home Medications Scheduled Atenolol (Tenormin), 25 MG PO QPM Dapagliflozin Propanediol (Farxiga), 1 TAB PO QPM Fentanyl (Duragesic), 50 MCG TD [id number] Finasteride (Proscar), 5 MG PO HS Insulin Glargine (Lantus), 35 UNITS SC QAM Losartan Potassium (Cozaar), 50 MG PO QPM Metformin Hcl (Glucophage), 500 MG PO BID Metformin Hcl (Glucophage), 1,000 MG PO BID Multivitamin (Multivitamin), 1 TAB PO DAILY Omeprazole (Prilosec), 20 MG PO BID Polyethylene Glycol 3350 (Miralax), 17 GM PO DAILY Psyllium (Metamucil), 1 TSP PO DAILY Ropinirole (Requip), 0.5 MG PO HS Rosuvastatin Calcium (Crestor), 20 MG PO HS Tamsulosin Hcl (Flomax), 0.4 MG PO HS Temazepam (Restoril), 30 MG PO HS Timolol Maleate (Timolol 0.5% Oph Soln 15 Ml), 1 DROP OPB QAM Travoprost (Travatan Z), 1 DROPS OPB HS Zinc Sulfate (Zinc Sulfate), 220 MG PO DAILY [Vitamin C], 1 TAB PO DAILY Scheduled PRN Acetaminophen Tab (Tylenol), 650 MG PO Q6H PRN for Pain Oxycodone/Acetaminophen 5MG/325MG (Percocet 5MG/325MG), 2 TABLETS PO Q12 PRN for Pain Review of Systems Constitutional: No fever, sweats or chills, + increased weakness and lethargy Eyes: No diplopia, no worsening or blurred vision ENT: normal hearing, no trouble swallowing Respiratory: No cough, sputum, dyspnea at rest or on exertion Cardiovascular: No chest pain, tightness or palpitations Abdomen: See history of present illness Musculoskeletal: No joint pain, calf pain, swelling Neurologic: No weakness, numbness/tingling, or balance problems Psychiatric: No anxiety or depression Skin: No rash or itch Physical Exam Vital Signs Date Time Temp Pulse Resp B/P (MAP) Pulse Ox O2 Delivery O2 Flow Rate FiO2 06/24/17 15:05 85 16 118/63 97 Room Air 06/24/17 13:59 84 06/24/17 13:23 37.2 89 20 108/73 95 Room Air General: awake, alert, + mild distress Head: Normocephalic, atraumatic ENT: PERRL, EOMI, no pharyngeal exudate, mucous membranes dry, + oral candidiasis, erythema over the right side of neck Chest: Clear to auscultation, on room air, no adventitious breath sounds, + Mediport in left chest wall Cardiac: Regular rate and rhythm, soft systolic murmur, no JVD, normal peripheral pulses, good capillary refill Abdominal: NABS x 4 quadrants, + PEG tube in place, no surrounding erythema, soft, nontender to palpation, no rebound, guarding or tenderness Extremities: Normal inspection, no peripheral edema or erythema, calfs nontender to palpation Psych: Normal mood and affect Neuro: AAO x 3, strength intact bilaterally and related 5/5, no motor deficits, speech is clear, no peripheral sensory deficits Diagnostics Laboratory Results Results Past 24 Hours Test 06/24/17 13:52 Range/Units White Blood Count 13.02 4.8-10.8 K/uL Red Blood Count 3.38 4.7-6.1 M/uL Hemoglobin 10.4 14.0-18.0 g/dL Hematocrit 29.9 42-52 % Mean Corpuscular Volume 88.5 80-100 fL Mean Corpuscular Hemoglobin 30.8 25-34 pg Mean Corpuscular Hemoglobin Concent 34.8 32-36 g/dl Platelet Count 226 130-400 K/uL Mean Platelet Volume 9.8 7.4-10.4 fL Neutrophils (%) (Auto) 73.0 % Lymphocytes (%) (Auto) 5.3 % Monocytes (%) (Auto) 16.6 % Eosinophils (%) (Auto) 0.1 % Basophils (%) (Auto) 0.2 % Neutrophils # (Auto) 9.50 1.4-6.5 K/uL Lymphocytes # (Auto) 0.69 1.2-3.4 K/uL Monocytes # (Auto) 2.16 0.11-0.59 K/uL Eosinophils # (Auto) 0.01 0-0.5 K/uL Basophils # (Auto) 0.03 0-0.2 K/uL RDW Standard Deviation 49.1 36.4-46.3 fL RDW Coefficient of Variation 16.2 11.5-14.5 % Immature Granulocyte % (Auto) 4.8 % Immature Granulocyte # (Auto) 0.63 0.00-0.02 K/uL Nucleated RBC Absolute Count (auto) 0.04 0-0 K/uL Nucleated Red Blood Cells % 0.3 % Prothrombin Time 10.9 9.0-12.0 SECONDS Prothromb Time International Ratio 1.0 0.9-1.1 Activated Partial Thromboplast Time 25.2 21.0-31.0 SECONDS Partial Thromboplastin Ratio 1.0 Sodium Level 128 136-145 mmol/L Potassium Level 4.6 3.5-5.1 mmol/L Chloride Level 93 98-107 mmol/L Carbon Dioxide Level 29 21-32 mmol/L Anion Gap 6.0 3-11 mmol/L Blood Urea Nitrogen 41 7-18 mg/dl Creatinine 1.43 0.60-1.40 mg/dl Est Creatinine Clear Calc Drug Dose 39.4 ml/min Estimated GFR () 54.4 Estimated GFR (Non- 46.9 BUN/Creatinine Ratio 28.9 10-20 Random Glucose 218 70-99 mg/dl Calcium Level 8.6 8.5-10.1 mg/dl Magnesium Level 1.3 1.8-2.4 mg/dl Total Bilirubin 0.3 0.2-1 mg/dl Direct Bilirubin < 0.1 0-0.2 mg/dl Aspartate Amino Transf (AST/SGOT) 10 15-37 U/L Alanine Aminotransferase (ALT/SGPT) 16 12-78 U/L Alkaline Phosphatase 114 45-117 U/L Troponin I < 0.015 0-0.045 ng/ml Total Protein 6.7 6.4-8.2 gm/dl Albumin 2.7 3.4-5.0 gm/dl Lipase 79 73-393 U/L Thyroid Stimulating Hormone (TSH) 1.040 0.300-4.500 uIu/ml Diagnostic Radiology [~ rep ct add3]] SINGLE VIEW CHEST CLINICAL HISTORY: Weakness. Nausea and vomiting. Diarrhea. FINDINGS: An AP, portable, upright chest radiograph is compared to study dated 05/29/2017 and correlated with PET/CT dated 04/17/2017. The examination is degraded by portable technique and patient rotation. A left subclavian central venous infusion port is unchanged in position. The heart is mildly enlarged and there is atherosclerotic calcification of the thoracic ureter. The pulmonary vasculature is noncongested. Emphysema and chronic interstitial thickening our similar to previous. No airspace consolidation or pleural effusion is identified. No pneumothorax is seen. The skeletal structures are osteopenic. Degenerative change is seen throughout the thoracic spine. IMPRESSION: Cardiomegaly and emphysema with no acute cardiopulmonary abnormality. Electronically signed by: Rodger Lowery M.D. 06/24/2017 2:25 PM Dictated Date/Time: 06/24/2017 2:20 PM The status of this report is Signed. EKG Normal sinus rhythm Normal ECG No previous ECGs available Vent. rate 86 BPM FL interval 146 ms QRS duration 76 ms QT/QTc 330/394 ms P-R-T axes 10 1 11 Impression Assessment and Plan This is a 76 yo M with PMHx of SCC of the epiglottis T2, M2 C stage IV, originally diagnosed on 04/04/17 currently undergoing cisplatin and XRT which began on 05/28/17 and is followed by Dr. Costello. Other PMHx includes HTN, HLD, BPH, DM II, GERD, and restless leg syndrome. SCC of the epiglottis T2, M2 C stage IV Intractable nausea and vomiting SAHIL - Admit to MedSurg - Oncology consulted, patient follows with Dr. Costello as an outpatient - Order Zofran 4 mg IV Q4H, Compazine 10 mg q6h, Phenergan IV as anti-emetics - Continue NSS at 100 ml/hr x 1 day and monitor PRP, Cr. elevated at 1.43 up slightly from baseline of 1.3 - Continue analgesia with fentanyl 50 mcg daily, and percocets 2 tabs PO Q6H prn - Will order dietitian consult as the patient uses Nutren 2.0 supplemental tube feedings, 4oz Q2H. Patient has a weight loss of 18 pounds beginning chemotherapy - PT and OT to eval DM type II - Reduce Lantus in half tonight, until pt able to tolerate tube feeds at baseline. Hold metformin with elevated creatinine of 1.43 Home dosing is equal to 35 units every afternoon - ISS with Accu-Cheks ACHS MYRIAM ion CPAP - Will order in house CPAP machine, patient does not wear supplemental O2 at baseline HTN - continue losartan 25 mg daily, Hyperlipidemia - Continue Crestor 20 mg daily BPH - Continue Flomax 5 mg daily GERD - Continue Prilosec 20 mg daily DVT ppx: heparin, teds, scds CODE STATUS: DO NOT RESUSCITATE, this was discussed with the patient and his at bedside Disposition: Patient from home, lives with [facility] Med/Surg Resuscitation Status DO NOT RESUSCITATE VTE Prophylaxis Risk Level: Low Given or contraindicated: Unfractionated heparin SQ, T.E.D. Stockings, SCD's Reviewed: Pt Seen/Exam by Me History Pt is feeling somewhat improved s/p IVF in the ED. states that [facility] The last time was Saturday. This has helped somewhat. They have HH nursing 1x/week right now. Pt is reliant on PEG tube for feeding due to metallic flavor with PO but he is able to eat if he likes. He did have a craving for a meatball sub last week but only managed a few bites. He is not tolerating his TF. No choking with emesis. No chest pain or SOB. Agree with HPI/ROS as noted by PA. General Appearance: WD/WN, no apparent distress Respiratory: normal breath sounds, no respiratory distress Cardiovascular: normal peripheral pulses, regular rate, rhythm Gastrointestinal: non tender, soft Extremities: non-tender, no pedal edema Neurologic/Psychiatric: alert, normal mood/affect, oriented x 3 Skin Characteristics: normal color, warm/dry Assessment/Plan Agree with plan as outlined above Intractable n/v, likely related to chemo Monitor on IVF ?? Possible to set up home IVF with HH nursing as pt does have a port in place?? No signs of infection, monitor
[2017-06-24] MEDS ORDERED: FNTTP50 TD (15:52)
--- NOTE | 2017-06-24 15:57 | EMERGENCY ROOM VISIT NOTE ---
History Report prepared by Alfred: Trisha Moran Under the Supervision of: Dr. Guerrero Li M.D. First contact with patient: 13:27 Chief Complaint: VOMITING Stated Complaint: NAUSEA, VOMITING, DIARRHEA Nursing Triage Summary: Pt presents with who reports n/v/d that has been intermittent since starting chemo/radiation in Mar. Pt currently undergoing chemo and radiation for throat cancer. Last chemo was 06/14/17. Last radiation was 06/21/17. History of Present Illness The patient is a 76 year old male who presents to the Emergency Room with complaints of intermittent vomiting starting a couple weeks ago. The patient is currently undergoing chemo for throat cancer. The patient has had intermittent nausea, vomiting, and diarrhea since starting chemo. He usually has relief of his nausea with Zofran, but he has not had any relief today. He is currently nauseated. He spoke with a nurse from his doctor's office who suggested he go to the ED. His notes that he has appeared pale since starting chemo. He has a history of diabetes. His blood sugar has been up and down. Pt denies LOC, headache, fevers, chills, diaphoresis, visual changes, neck pain, chest pain, breathing difficulties, abdominal pain, back pain, melena, hematochezia, urinary symptoms, numbness, weakness, lymphadenopathy, rash, or other complaints. Source of History: patient, spouse/significant other Onset: couple weeks ago Position: other (global) Quality: other (vomiting) Timing: intermittent Associated Symptoms: + nausea, + diarrhea Review of Systems See HPI for pertinent positives and negatives. A total of ten systems were reviewed and were otherwise negative. Past Medical & Surgical Medical Problems: (1) Carcinoma of supraglottis (2) Intractable nausea and vomiting (3) Squamous cell cancer of epiglottis Family History No pertinent family history stated. Social History Smoking Status: Former Smoker Marital Status: Housing Status: lives with significant other Occupation Status: retired Current/Historical Medications Scheduled Atenolol (Tenormin), 25 MG PO QPM Dapagliflozin Propanediol (Farxiga), 1 TAB PO QPM Fentanyl (Duragesic), Unknown Dose TD CQ72HR Fentanyl (Duragesic), 50 MCG TD CQ72HR Finasteride (Proscar), 5 MG PO HS Insulin Glargine (Lantus), 35 UNITS SC QPM Losartan Potassium (Cozaar), 50 MG PO QPM Metformin Hcl (Glucophage), 500 MG PO BID Metformin Hcl (Glucophage), 1,000 MG PO BID Multivitamin (Multivitamin), 1 TAB PO DAILY Omeprazole (Prilosec), 20 MG PO BID Polyethylene Glycol 3350 (Miralax), 17 GM PO DAILY Psyllium (Metamucil), 1 TSP PO DAILY Ropinirole (Requip), 0.5 MG PO HS Rosuvastatin Calcium (Crestor), 20 MG PO HS Tamsulosin Hcl (Flomax), 0.4 MG PO HS Temazepam (Restoril), 30 MG PO HS Timolol Maleate (Timolol 0.5% Oph Soln 15 Ml), 1 DROP OPB QAM Travoprost (Travatan Z), 1 DROPS OPB HS Zinc Sulfate (Zinc Sulfate), 220 MG PO DAILY [Vitamin C], 1 TAB PO DAILY Scheduled PRN Acetaminophen Tab (Tylenol), 650 MG PO Q6H PRN for Pain Oxycodone/Acetaminophen 5MG/325MG (Percocet 5MG/325MG), 2 TABLETS PO Q12 PRN for Pain Allergies Coded Allergies: Shellfish (Verified Allergy, Intermediate, FACIAL SWELLING, 06/24/17) Penicillins (Verified Allergy, Unknown, ? REMEMBER, 06/24/17) Physical Exam Vital Signs Date Time Temp Pulse Resp B/P (MAP) Pulse Ox O2 Delivery O2 Flow Rate FiO2 06/24/17 15:05 85 16 118/63 97 Room Air 06/24/17 13:59 84 06/24/17 13:23 37.2 89 20 108/73 95 Room Air Physical Exam GENERAL: Awake, alert, weak and tired-appearing, in no distress HENT: Normocephalic, atraumatic. Oropharynx unremarkable. EYES: Pale conjunctiva. Sclera non-icteric. NECK: Supple. No nuchal rigidity. FROM. No JVD. RESPIRATORY: Clear to auscultation. CARDIAC: Regular rate, normal rhythm. Extremities warm and well perfused. Pulses equal. ABDOMEN: Soft, non-distended. Feeding tube in the epigastrium. No tenderness to palpation. No rebound or guarding. No masses. RECTAL: Deferred. MUSCULOSKELETAL: Chest examination reveals port in the left upper chest, no tenderness. The back is symmetrical on inspection without obvious abnormality. There is no CVA tenderness to palpation. No joint edema. LOWER EXTREMITIES: Calves are equal size bilaterally and non-tender. No edema. No discoloration. NEURO: Normal sensorium. No sensory or motor deficits noted. SKIN: No rash or jaundice noted. Medical Decision & Procedures ER Provider Diagnostic Interpretation: Xray results as stated below per my and radiologist interpretation: SINGLE VIEW CHEST CLINICAL HISTORY: Weakness. Nausea and vomiting. Diarrhea. FINDINGS: An AP, portable, upright chest radiograph is compared to study dated 05/29/2017 and correlated with PET/CT dated 04/17/2017. The examination is degraded by portable technique and patient rotation. A left subclavian central venous infusion port is unchanged in position. The heart is mildly enlarged and there is atherosclerotic calcification of the thoracic ureter. The pulmonary vasculature is noncongested. Emphysema and chronic interstitial thickening our similar to previous. No airspace consolidation or pleural effusion is identified. No pneumothorax is seen. The skeletal structures are osteopenic. Degenerative change is seen throughout the thoracic spine. IMPRESSION: Cardiomegaly and emphysema with no acute cardiopulmonary abnormality. Electronically signed by: Rodger Lowery M.D. 06/24/2017 2:25 PM Dictated Date/Time: 06/24/2017 2:20 PM Laboratory Results 06/24/17 13:52 Red Blood Count 3.38, Mean Corpuscular Volume 88.5, Mean Corpuscular Hemoglobin 30.8, Mean Corpuscular Hemoglobin Concent 34.8, Mean Platelet Volume 9.8, Neutrophils (%) (Auto) 73.0, Lymphocytes (%) (Auto) 5.3, Monocytes (%) (Auto) 16.6, Eosinophils (%) (Auto) 0.1, Basophils (%) (Auto) 0.2, Neutrophils # (Auto ) 9.50, Lymphocytes # (Auto) 0.69, Monocytes # (Auto) 2.16, Eosinophils # (Auto ) 0.01, Basophils # (Auto) 0.03 06/24/17 13:52 Test 06/24/17 13:52 White Blood Count 13.02 K/uL (4.8-10.8) Red Blood Count 3.38 M/uL (4.7-6.1) Hemoglobin 10.4 g/dL (14.0-18.0) Hematocrit 29.9 % (42-52) Mean Corpuscular Volume 88.5 fL (80-100) Mean Corpuscular Hemoglobin 30.8 pg (25-34) Mean Corpuscular Hemoglobin Concent 34.8 g/dl (32-36) Platelet Count 226 K/uL (130-400) Mean Platelet Volume 9.8 fL (7.4-10.4) Neutrophils (%) (Auto) 73.0 % Lymphocytes (%) (Auto) 5.3 % Monocytes (%) (Auto) 16.6 % Eosinophils (%) (Auto) 0.1 % Basophils (%) (Auto) 0.2 % Neutrophils # (Auto) 9.50 K/uL (1.4-6.5) Lymphocytes # (Auto) 0.69 K/uL (1.2-3.4) Monocytes # (Auto) 2.16 K/uL (0.11-0.59) Eosinophils # (Auto) 0.01 K/uL (0-0.5) Basophils # (Auto) 0.03 K/uL (0-0.2) RDW Standard Deviation 49.1 fL (36.4-46.3) RDW Coefficient of Variation 16.2 % (11.5-14.5) Immature Granulocyte % (Auto) 4.8 % Immature Granulocyte # (Auto) 0.63 K/uL (0.00-0.02) Nucleated RBC Absolute Count (auto) 0.04 K/uL (0-0) Nucleated Red Blood Cells % 0.3 % Prothrombin Time 10.9 SECONDS (9.0-12.0) Prothromb Time International Ratio 1.0 (0.9-1.1) Activated Partial Thromboplast Time 25.2 SECONDS (21.0-31.0) Partial Thromboplastin Ratio 1.0 Anion Gap 6.0 mmol/L (3-11) Est Creatinine Clear Calc Drug Dose 39.4 ml/min Estimated GFR () 54.4 Estimated GFR (Non- 46.9 BUN/Creatinine Ratio 28.9 (10-20) Calcium Level 8.6 mg/dl (8.5-10.1) Magnesium Level 1.3 mg/dl (1.8-2.4) Total Bilirubin 0.3 mg/dl (0.2-1) Direct Bilirubin < 0.1 mg/dl (0-0.2) Aspartate Amino Transf (AST/SGOT) 10 U/L (15-37) Alanine Aminotransferase (ALT/SGPT) 16 U/L (12-78) Alkaline Phosphatase 114 U/L (45-117) Troponin I < 0.015 ng/ml (0-0.045) Total Protein 6.7 gm/dl (6.4-8.2) Albumin 2.7 gm/dl (3.4-5.0) Lipase 79 U/L (73-393) Thyroid Stimulating Hormone (TSH) 1.040 uIu/ml (0.300-4.500) Laboratory results reviewed by me Medications Administered Medications (Trade) Dose Ordered Sig/Sotero Route Start Time Stop Time Status Last Admin Dose Admin Sodium Chloride 1,000 ml @ 999 mls/hr Q1H1M STAT IV 06/24/17 13:29 06/24/17 14:29 DC 06/24/17 14:01 999 MLS/HR Ondansetron HCl (Zofran Inj) 4 mg NOW STAT IV 06/24/17 13:29 06/24/17 13:32 DC 06/24/17 14:00 4 MG Magnesium Sulfate (Magnesium Sulfate) 2 gm NOW STAT IV 06/24/17 14:41 06/24/17 14:42 DC 06/24/17 15:04 2 GM Sodium Chloride 1,000 ml @ 125 mls/hr Q8H STAT IV 06/24/17 14:41 06/24/17 22:40 06/24/17 15:05 125 MLS/HR ECG Indication: nausea Rate (beats per minute): 86 Rhythm: normal sinus Findings: no acute ischemic change, no ectopy Change: Patient's electrocardiogram was interpreted by me. ED Course 1329: Zofran Inj 4 mg IV, NSS 1000 ml @ 999 mls/hr IV. 1336: The patient was evaluated in room B9. A complete history and physical exam was performed. 1418: I reevaluated the patient. He is getting fluids. 1441: Magnesium Sulfate 2 gm IV, NSS 1000 ml @ 125 mls/hr IV. 1444: Upon reexamination, the patient was resting comfortably. I discussed the test results and treatment plan with him and his . They verbalized agreement of the plan. The patient will be evaluated for further management. 1447: I discussed the patient's case with DAREN Valdez hospitalist. The patient will be evaluated for further treatment and disposition. Medical Decision Prior records/ancillary studies reviewed and summarized above. Nursing notes reviewed and agree them. Additional history obtained from the . The patient's history was concerning for weakness. Differential diagnosis: Etiologies such as metabolic, infection, hypo/hyperglycemia, electrolyte abnormalities, cardiac sources, intracerebral event, toxicologic, neurologic, as well as others were entertained. Physical examination: As above. ER treatment provided: IV Lock IV normal saline hydration IV Zofran IV magnesium On reassessment the patient felt better. Diagnostics interpretation by me: ECG: Normal at 86 bpm. The labs revealed a mild anemia on CBC. Chemistry panel revealed hyponatremia and hypomagnesemia. Cardiac markers negative. Stool studies pending. Imaging studies: X-ray as above. The patient is dehydrated. He has hypomagnesemia and hyponatremia.I gave my usual and customary discussion regarding this issue. Consultation: A consultation was placed with the hospitalist. The case was discussed and diagnostics were reviewed. The patient was evaluated in the ER for further treatment. Medication Reconcilliation Current Medication List: was personally reviewed by me Blood Pressure Screening Patient's blood pressure: Normal blood pressure Blood pressure disposition: Did not require urgent referral Consults Time Called: 1443 Consulting Physician: DAREN Valdez hospitalist Returned Call: [phone] Discussed the patient's case. The patient will be evaluated for further treatment and disposition. Impression Primary Impression: Nausea, vomiting, and diarrhea Additional Impressions: Hypomagnesemia Hyponatremia Scribe Attestation The scribe's documentation has been prepared under my direction and personally reviewed by me in its entirety. I confirm that the note above accurately reflects all work, treatment, procedures, and medical decision making performed by me. Departure Information Dispostion Being Evaluated By Hospitalist Referrals Cali Haines M.D. (PCP) Patient Instructions My [facility] Problem Qualifiers
[2017-06-24] MEDS ORDERED: MAGNESIUM HYDROXIDE SUSP 30 ML UDC PO PRN (16:00)
[2017-06-24] MEDS ORDERED: GLUCOSE 10 TABS/TUBE PO PRN (16:00)
[2017-06-24] MEDS ORDERED: GLUCOSE 40% GEL 15 GM TUBE PO PRN (16:00)
[2017-06-24] MEDS ORDERED: ACETAMINOPHEN 325 MG TAB PO PRN ×2 (16:00)
[2017-06-24] MEDS ORDERED: GLUCAGON FOR INJ 1 MG VIAL SQ PRN (16:00)
[2017-06-24] MEDS ORDERED: DEXTROSE 50% 50 ML SYR IV PRN (16:00)
[2017-06-24] MEDS ORDERED: PROCHLORPERAZINE MALEATE 10 MG TAB PO PRN (16:30)
[2017-06-24] MEDS ORDERED: PROMETHAZINE HCL INJ 25 MG in SODIUM CHLORIDE 0.9% 50ML 50 ML IV PRN (16:30)
[2017-06-24 17:11] VITALS: BP 143/68; PULSE 83; TEMP 37.4; O2SAT 95
[2017-06-24 18:04] VITALS: BP 143/68; PULSE 83; TEMP 37.4; O2SAT 97; BMI 29.6
--- NOTE | 2017-06-24 18:08 | Oncology Consultation ---
Oncology/Heme Consultation Date of Consultation: Jun 24, 2017. Attending Physician: Priti Mendez DO Reason for Consultation: History of squamous cell carcinoma of the epiglottis History of Present Illness Mr. Ewing is a 76-year-old gentleman with a history of squamous cell carcinoma of the epiglottis. He has been receiving combined modality therapy. The diagnosis dates back to April of last year. A PET scan done at that time showed asymmetric thickening of the left aspect of the epiglottis with a corresponding mass is 2.8 cm in size. There is marked FDG uptake. There was also FDG avid left level II lymph node measuring 1.1 x 1.8 cm in size as well as additional left sided lymph nodes also showing FDG uptake. He is been treated with radiation therapy along with weekly cis-shishmaref ira. His last dose of cisplatin was 10 days ago. He is admitted with repeated nausea and vomiting. He states he has lost 10-12 pounds in the past month or so. He denies any fever. He denies any shortness of breath. He denies any change in bowel habits. He has had creatinines in the past that have been borderline elevated. He has a background history of type 2 diabetes mellitus. He has a feeding tube in place that he states he uses every day. P-16 stain was performed on the biopsy of the epiglottis. This P-16 stain was estimated at less than 5%. Again a biopsy of the epiglottis revealed a mildly differentiated invasive keratinizing squamous cell carcinoma Past Medical/Surgical History Medical Problems: (1) Hypomagnesemia Status: Acute (2) Hyponatremia Status: Acute (3) Nausea, vomiting, and diarrhea Status: Acute Family History Records reflect that his mother passed at 88 years of age secondary to natural causes. Father at age of 80 secondary to pneumonia. His brother has a history of prostate carcinoma. Another brother at age 63 from prostate carcinoma. There is a third brother at the age of 58 with lung cancer Social History Former smoker negative for alcohol use Smoking Status: Former Smoker Smokeless Tobacco Use: No Alcohol Use: none Marital Status: Housing Status: lives with significant other Occupation Status: retired Allergies Coded Allergies: Shellfish (Verified Allergy, Intermediate, FACIAL SWELLING, 06/24/17) Penicillins (Verified Allergy, Unknown, ? REMEMBER, 06/24/17) Home Medications Scheduled Atenolol (Tenormin), 25 MG PO QPM Dapagliflozin Propanediol (Farxiga), 1 TAB PO QPM Fentanyl (Duragesic), 50 MCG TD CQ72HR Finasteride (Proscar), 5 MG PO HS Insulin Glargine (Lantus), 35 UNITS SC QAM Losartan Potassium (Cozaar), 50 MG PO QPM Metformin Hcl (Glucophage), 500 MG PO BID Metformin Hcl (Glucophage), 1,000 MG PO BID Multivitamin (Multivitamin), 1 TAB PO DAILY Omeprazole (Prilosec), 20 MG PO BID Polyethylene Glycol 3350 (Miralax), 17 GM PO DAILY Psyllium (Metamucil), 1 TSP PO DAILY Ropinirole (Requip), 0.5 MG PO HS Rosuvastatin Calcium (Crestor), 20 MG PO HS Tamsulosin Hcl (Flomax), 0.4 MG PO HS Temazepam (Restoril), 30 MG PO HS Timolol Maleate (Timolol 0.5% Oph Soln 15 Ml), 1 DROP OPB QAM Travoprost (Travatan Z), 1 DROPS OPB HS Zinc Sulfate (Zinc Sulfate), 220 MG PO DAILY [Vitamin C], 1 TAB PO DAILY Scheduled PRN Acetaminophen Tab (Tylenol), 650 MG PO Q6H PRN for Pain Oxycodone/Acetaminophen 5MG/325MG (Percocet 5MG/325MG), 2 TABLETS PO Q12 PRN for Pain Current Inpatient Medications Current Inpatient Medications Medications (Trade) Dose Ordered Sig/Sotero Route Start Time Stop Time Status Last Admin Dose Admin Sodium Chloride 1,000 ml @ 125 mls/hr Q8H STAT IV 06/24/17 14:41 06/24/17 22:40 06/24/17 15:05 125 MLS/HR Heparin Sodium (Porcine) (Heparin Sq 5000 Unit/0.5ml) 5,000 unit Q8H SQ 06/24/17 22:00 07/24/17 21:59 Acetaminophen (Tylenol Tab) 650 mg Q4H PRN PO 06/24/17 16:00 07/24/17 15:59 Magnesium Hydroxide (Milk Of Magnesia Susp) 30 ml Q6H PRN PO 06/24/17 16:00 07/24/17 15:59 Ondansetron HCl (Zofran Inj) 4 mg Q6H PRN IV 06/24/17 16:00 07/24/17 15:59 Atenolol (Tenormin Tab) 25 mg QPM PO 06/24/17 21:00 07/24/17 20:59 Fentanyl (Duragesic Patch) 50 mcg Q72H TD 06/26/17 09:00 07/10/17 08:59 Finasteride (Proscar Tab) 5 mg HS PO 06/24/17 21:00 07/24/17 20:59 Losartan Potassium (coZAAR TAB) 50 mg QPM PO 06/24/17 21:00 07/24/17 20:59 Multivitamins (Multivitamin Tab) 1 tab DAILY PO 06/25/17 08:00 07/25/17 08:59 Oxycodone/ Acetaminophen (Percocet 5-325mg Tab) 2 tab Q12 PRN PO 06/24/17 16:00 07/08/17 15:59 Ropinirole HCl (Requip Tab) 0.5 mg HS PO 06/24/17 21:00 07/24/17 20:59 Rosuvastatin Calcium (Crestor Tab) 20 mg HS PO 06/24/17 21:00 07/24/17 20:59 Tamsulosin HCl (Flomax Cap) 0.4 mg HS PO 06/24/17 21:00 07/24/17 20:59 Temazepam (Restoril Cap) 30 mg HS PO 06/24/17 21:00 07/24/17 20:59 Timolol Maleate (Timoptic 0.5% Oph Soln) 1 drops QAM OPB 06/25/17 08:00 07/25/17 08:59 Travoprost (Travatan Z) 1 drops HS OPB 06/24/17 21:00 07/24/17 20:59 Zinc Sulfate (Zinc Sulfate Cap) 220 mg DAILY PO 06/25/17 08:00 07/25/17 08:59 Sodium Chloride 1,000 ml @ 100 mls/hr Q10H IV 06/24/17 22:45 06/25/17 22:44 Insulin Glargine (Lantus Solostar Pen) 17 units QPM SC 06/24/17 21:00 07/24/17 20:59 Insulin Aspart (novoLOG ASPART) SLIDING SCALE If C... ACHS SC 06/24/17 16:00 07/24/17 15:59 Glucose (Glucose 40% Gel) 15-30 GRAMS 15 GRAMS... UD PRN PO 06/24/17 16:00 07/24/17 15:59 Glucose (Glucose Chew Tab) 4-8 Tablets 4 Tabl... UD PRN PO 06/24/17 16:00 07/24/17 15:59 Dextrose (Dextrose 50% 50ML Syringe) 25-50ML OF 50% DW IV FOR... UD PRN IV 06/24/17 16:00 07/24/17 15:59 Glucagon (Glucagon Inj) 1 mg UD PRN SQ 06/24/17 16:00 07/24/17 15:59 Promethazine HCl 25 mg/Sodium Chloride 51 ml @ 204 mls/hr Q6H PRN IV 06/24/17 16:30 07/24/17 16:29 Miscellaneous (Fentanyl Patch Remove & Waste) 1 ea Q3D@0859 N/A 06/26/17 08:59 07/26/17 08:58 Miscellaneous Information (Check Fentanyl Patch Placement) 1 ea QS N/A 06/25/17 00:00 07/25/17 00:00 Prochlorperazine Maleate (Compazine Tab) 10 mg Q6 PRN PO 06/24/17 16:30 07/24/17 16:29 Review of Systems Constitutional: Negative for night sweats, or fever Eyes: Negative for event change of vision ENT: Negative for epistaxis, nasal discharge, he does have a sore throat,no deafness Cardiovascular: Negative for chest pain, palpitations, dizziness, diaphoresis Respiratory: Negative for new shortness of breath,hemoptysis, or purulent cough Gastrointestinal: Negative for diarrhea, hematemesis, melena, positive nausea vomiting and dysphagia Integumentary (skin): Negative for rash or jaundice discoloration Genitourinary: Negative for urinary frequency, hematuria, or dysuria Neurological: Negative for weakness, seizure activity, headache, or dizziness Lymphatic/Hematologic: Negative for petechiae, bleeding or new adenopathy Musculoskeletal: Negative for new joint or back pain Allergic/Immunologic: Negative for unusual rash or pruritis. Physical Exam Date Time Temp Pulse Resp B/P (MAP) Pulse Ox O2 Delivery O2 Flow Rate FiO2 06/24/17 17:11 37.4 83 18 143/68 (93) 95 Room Air 06/24/17 15:05 85 16 118/63 97 Room Air 06/24/17 13:59 84 06/24/17 13:23 37.2 89 20 108/73 95 Room Air Constitutional: vitals are stable. Eyes: Eyes are EAGLE EOMI without conjuctival erythema or icterus. ENT: External examination was negative for masses. He is marked coating of his retropharyngeal area consistent with a heavy coat of thrush Neck: Negative for masses or palpable thyromegaly Respiratory: Lung sounds were generally clear bilaterally Cardiovascular: Heart was RRR without significant murmur, gallops aoe rubs Gastrointestinal: No palpable hepatic or splenomegaly. The abdomen was soft with normal bowel sounds. Feeding tube is in place. Lymphatic system: there was no palpable peripheral lymphadenopathy Musculoskeletal System: The musculoskeletal system seemed concordant with age. Skin: The skin was negative for jaundice. Neurologic exam: The exam was negative for any focal findings. Deep tendon reflexes were equal and symmetrical. Psychiatric exam: Was essentially negative with normal mood and effect. Extremities: negative for edema Laboratory Results Last 24 Hours Test 06/24/17 13:52 06/24/17 16:08 06/24/17 17:48 White Blood Count 13.02 K/uL Red Blood Count 3.38 M/uL Hemoglobin 10.4 g/dL Hematocrit 29.9 % Mean Corpuscular Volume 88.5 fL Mean Corpuscular Hemoglobin 30.8 pg Mean Corpuscular Hemoglobin Concent 34.8 g/dl Platelet Count 226 K/uL Mean Platelet Volume 9.8 fL Neutrophils (%) (Auto) 73.0 % Lymphocytes (%) (Auto) 5.3 % Monocytes (%) (Auto) 16.6 % Eosinophils (%) (Auto) 0.1 % Basophils (%) (Auto) 0.2 % Neutrophils # (Auto) 9.50 K/uL Lymphocytes # (Auto) 0.69 K/uL Monocytes # (Auto) 2.16 K/uL Eosinophils # (Auto) 0.01 K/uL Basophils # (Auto) 0.03 K/uL RDW Standard Deviation 49.1 fL RDW Coefficient of Variation 16.2 % Immature Granulocyte % (Auto) 4.8 % Immature Granulocyte # (Auto) 0.63 K/uL Nucleated RBC Absolute Count (auto) 0.04 K/uL Nucleated Red Blood Cells % 0.3 % Prothrombin Time 10.9 SECONDS Prothromb Time International Ratio 1.0 Activated Partial Thromboplast Time 25.2 SECONDS Partial Thromboplastin Ratio 1.0 Sodium Level 128 mmol/L Potassium Level 4.6 mmol/L Chloride Level 93 mmol/L Carbon Dioxide Level 29 mmol/L Anion Gap 6.0 mmol/L Blood Urea Nitrogen 41 mg/dl Creatinine 1.43 mg/dl Est Creatinine Clear Calc Drug Dose 39.4 ml/min Estimated GFR () 54.4 Estimated GFR (Non- 46.9 BUN/Creatinine Ratio 28.9 Random Glucose 218 mg/dl Calcium Level 8.6 mg/dl Magnesium Level 1.3 mg/dl Total Bilirubin 0.3 mg/dl Direct Bilirubin < 0.1 mg/dl Aspartate Amino Transf (AST/SGOT) 10 U/L Alanine Aminotransferase (ALT/SGPT) 16 U/L Alkaline Phosphatase 114 U/L Troponin I < 0.015 ng/ml Total Protein 6.7 gm/dl Albumin 2.7 gm/dl Lipase 79 U/L Thyroid Stimulating Hormone (TSH) 1.040 uIu/ml Urine Color YELLOW Urine Appearance CLEAR Urine pH 5.0 Urine Specific [place] 1.025 Urine Protein NEG Urine Glucose (UA) 3+ Urine Ketones NEG Urine Occult Blood NEG Urine Nitrite NEG Urine Bilirubin NEG Urine Urobilinogen NEG Urine Leukocyte Esterase NEG Bedside Glucose 157 mg/dl Assessment & Plan Squamous cell carcinoma of the epiglottis. He has been treated with combined modality therapy. He is been given cis-shishmaref ira and has had recurrent nausea vomiting. His last dose of cisplatin was 10 days ago. His blood counts are quite good. I doubt very much that his nausea and vomiting is all attributed to chemotherapy. He does have a very heavy coat of what appears to be thrush coating his retropharyngeal area and is quite possible that that is responsible for his nausea or vomiting. He does also take medicines that could be responsible such as the codeines. I would suggest that he receive Diflucan 200 mg IV daily for his apparent esophageal thrush. Zofran 8 mg IV every 6 8 hours can be used for nausea. We will follow along with you.
[2017-06-24] MEDS: INSULIN ASPART 100 UNITS/ML 3 ML PEN SC SCH ×2 (18:58→20:31)
[2017-06-24 19:34] VITALS: BP 107/67; PULSE 89; TEMP 37; O2SAT 97
[2017-06-24] MEDS ORDERED: LIDOCAINE HCL 2% VISCOUS SOLN 60 ML, DiphenhydrAMINE HCL SYRUP 150 MG, ALUMINUM/MAGNESI... MT PRN ×4 (20:00)
[2017-06-24] MEDS ORDERED: MAGIC SWIZZLE PO PRN (20:00)
[2017-06-24] MEDS: FLUCONAZOLE / NSS 200 MG in PREMIXED NSS 100 ML IV SCH (20:29)
[2017-06-24] MEDS: CHECK FENTANYL PATCH PLACEMENT SCH (20:30)
[2017-06-24] MEDS: ROPINIROLE HCL 1 MG TAB PO SCH (20:34)
[2017-06-24] MEDS: LOSARTAN POTASSIUM 50 MG TAB PO SCH (20:34)
[2017-06-24] MEDS: ROSUVASTATIN CALCIUM 20 MG TAB PO SCH (20:34)
[2017-06-24] MEDS: FINASTERIDE 5 MG TAB PO SCH (20:34)
[2017-06-24] MEDS: TAMSULOSIN HCL 0.4 MG CAP PO SCH (20:35)
[2017-06-24] MEDS: INSULIN GLARGINE SOLOSTAR 100 UNITS/ML 3 ML PEN SC SCH (20:36)
[2017-06-24] MEDS: TRAVOPROST Z 0.004% OPH SOLN 2.5 ML BTL OPB SCH (20:36)
[2017-06-24] MEDS: TEMAZEPAM 15 MG CAP PO SCH (20:36)
[2017-06-24] MEDS: HEPARIN SOD 5000 UNIT/0.5 ML CARP SQ SCH (20:38)
[2017-06-24 23:34] VITALS: BP 128/79; PULSE 81; TEMP 37.2; O2SAT 92
[2017-06-25] VITALS (8 sets, daily range): BP systolic 108–156; BP diastolic 67–90; PULSE 77–88; TEMP 36.6–37.5; O2SAT 92–97; BMI 29.2
[2017-06-25] MEDS: SODIUM CHLORIDE 0.9% 1000ML 1,000 ML IV SCH ×3 (00:25→17:32)
[2017-06-25 06:50] LABS: BASO % 0.2 %; BASO ABS # 0.02 K/uL (0-0.2); EOS % 0.1 %; EOS ABS # 0.01 K/uL (0-0.5); HEMATOCRIT 28.3 % (42-52); HEMOGLOBIN 9.6 g/dL (14.0-18.0); IG# 0.37 K/uL (0.00-0.02); LYMPH % 9.2 %; LYMPH ABS # 0.81 K/uL (1.2-3.4); MEAN CELL VOLUME 88.4 fL (80-100); MEAN CORPUSCULAR HGB CONC 33.9 g/dl (32-36); MEAN PLATELET VOLUME 9.6 fL (7.4-10.4); MONO % 16.3 %; MONO ABS # 1.43 K/uL (0.11-0.59); NEUT ABS # 6.12 K/uL (1.4-6.5); NUCLEATED RED BLOOD CELL ABS 0.03 K/uL (0-0); PLATELET COUNT 202 K/uL (130-400); RED CELL DISTRIBUTION WIDTH CV 16.4 % (11.5-14.5); RED CELL DISTRIBUTION WIDTH SD 50.5 fL (36.4-46.3); WHITE BLOOD COUNT 8.76 K/uL (4.8-10.8)
[2017-06-25 07:29] LABS: CALCIUM 8.7 mg/dl (8.5-10.1); CREATININE 0.91 mg/dl (0.60-1.40); POTASSIUM 4.3 mmol/L (3.5-5.1)
[2017-06-25] MEDS: MULTIVITAMIN TAB PO SCH (08:00)
[2017-06-25] MEDS ORDERED: FLUCONAZOLE SUSP 100 MG/10 ML UDP PO SCH (08:00)
[2017-06-25] MEDS: ZINC SULFATE 220 MG CAP PO SCH (08:00)
--- NOTE | 2017-06-25 08:10 | Clinical Documentation Query ---
MARJAN Parra : CLINICAL DOCUMENTATION QUERY This is a 76 yo M with PMHx of SCC of the epiglottis T2, M2 C stage IV, originally diagnosed on 04/04/17 currently undergoing cisplatin and XRT which began on 05/28/17. Documentation includes the following: "Will order dietitian consult as the patient uses Nutren 2.0 supplemental tube feedings, 4oz Q2H. Patient has a weight loss of 18 pounds beginning chemotherapy". Patient has lost 10% of body weight since May 20, 2017. Oral intake is poor per patient. In your clinical opinion is this patient being managed for: ( x ) Severe protein-calorie malnutrition ( ) Not Agree ( ) Other explanation of clinical findings (Please Explain) ( ) Unable to determine (Please Define) ( ) Need to Discuss The medical record reflects the following clinical findings, treatment, and risk factors. Clinical Indicators: As above. Significant weight loss over short interval, unintentional Treatment: Burglary Investigator consultation, tube feeds Risk Factors: SCCA of epiglottis, oral candidiasis, medications Please clarify and document your clinical opinion in the progress notes and discharge summary. Terms such as "probable", "suspected", "likely", "questionable", "possible", or "still to be ruled out" are acceptable. IF IN AGREEMENT, YOU MUST DOCUMENT ABOVE DIAGNOSTIC STATEMENT IN DAILY PROGRESS NOTES AND DISCHARGE SUMMARY. This document is not part of the patient's record. Thank You, Jimmy Bedoya, JEANMARIE [phone]
[2017-06-25] MEDS: ONDANSETRON INJ 2 MG/ML 2 ML VIAL IV PRN ×2 (08:25→14:16)
[2017-06-25] MEDS: CHECK FENTANYL PATCH PLACEMENT SCH ×2 (08:27→15:56)
[2017-06-25] MEDS: TIMOLOL MALEATE 0.5% OP SOLN 5 ML BTL OPB SCH (08:28)
--- NOTE | 2017-06-25 08:34 | Hospitalist Progress Note ---
Hospitalist Progress Note Date of Service Jun 25, 2017. Subjective Pt evaluation today including: conversation w/ patient, physical exam, chart review, lab review, review of studies Pain: Mild PO Intake: Fair Voiding: no voiding problems The patient was seen and examined this morning. Pt reports not doing very well today, he is having nausea and dry heaves this morning. Pt thinks this is only slightly better today. He is taking zofran, compazine, phenergan and also just received a dose of reglan this morning. Pt had a moderate, formed bowel movement this morning. He still feels quite weak. Pt reports his pain is well controlled currently. Additional Comments: Constitutional: No fever, sweats or chills, + weakness and lethargy ongoing Eyes: No diplopia, no worsening or blurred vision ENT: normal hearing, + trouble swallowing, sore throat Respiratory: No cough, sputum, dyspnea at rest or on exertion Cardiovascular: No chest pain, tightness or palpitations Abdomen: See history of present illness Musculoskeletal: No joint pain, calf pain, swelling Neurologic: No weakness, numbness/tingling, or balance problems Psychiatric: No anxiety or depression Skin: No rash or itch Objective Vital Signs Date Time Temp Pulse Resp B/P (MAP) Pulse Ox O2 Delivery O2 Flow Rate FiO2 06/25/17 04:24 36.7 83 18 108/67 (81) 92 Room Air 06/25/17 00:00 97 Room Air 06/24/17 23:34 37.2 81 18 128/79 (95) 92 Room Air 06/24/17 19:34 37.0 89 18 107/67 (80) 97 Nasal Cannula 06/24/17 18:04 37.4 83 18 143/68 97 Room Air 06/24/17 17:11 37.4 83 18 143/68 (93) 95 Room Air 06/24/17 15:05 85 16 118/63 97 Room Air 06/24/17 13:59 84 06/24/17 13:23 37.2 89 20 108/73 95 Room Air Physical Exam Notes: General: awake, alert, + mild distress Head: Normocephalic, atraumatic ENT: PERRL, EOMI, no pharyngeal exudate, mucous membranes dry, + oral candidiasis, erythema over the right side of neck Chest: Clear to auscultation, on room air, no adventitious breath sounds, + Mediport in left chest wall accessed Cardiac: Regular rate and rhythm, soft systolic murmur, no JVD, normal peripheral pulses, good capillary refill Abdominal: NABS x 4 quadrants, + PEG tube in place, no surrounding erythema, soft, nontender to palpation, no rebound, guarding or tenderness Extremities: Normal inspection, no peripheral edema or erythema, calfs nontender to palpation Psych: Normal mood and affect Neuro: AAO x 3, strength intact bilaterally and related 5/5, no motor deficits, speech is clear, no peripheral sensory deficits Laboratory Results Last 24 Hours Test 06/24/17 13:52 06/24/17 16:08 06/24/17 17:48 06/25/17 06:04 White Blood Count 13.02 K/uL 8.76 K/uL Red Blood Count 3.38 M/uL 3.20 M/uL Hemoglobin 10.4 g/dL 9.6 g/dL Hematocrit 29.9 % 28.3 % Mean Corpuscular Volume 88.5 fL 88.4 fL Mean Corpuscular Hemoglobin 30.8 pg 30.0 pg Mean Corpuscular Hemoglobin Concent 34.8 g/dl 33.9 g/dl Platelet Count 226 K/uL 202 K/uL Mean Platelet Volume 9.8 fL 9.6 fL Neutrophils (%) (Auto) 73.0 % 70.0 % Lymphocytes (%) (Auto) 5.3 % 9.2 % Monocytes (%) (Auto) 16.6 % 16.3 % Eosinophils (%) (Auto) 0.1 % 0.1 % Basophils (%) (Auto) 0.2 % 0.2 % Neutrophils # (Auto) 9.50 K/uL 6.12 K/uL Lymphocytes # (Auto) 0.69 K/uL 0.81 K/uL Monocytes # (Auto) 2.16 K/uL 1.43 K/uL Eosinophils # (Auto) 0.01 K/uL 0.01 K/uL Basophils # (Auto) 0.03 K/uL 0.02 K/uL RDW Standard Deviation 49.1 fL 50.5 fL RDW Coefficient of Variation 16.2 % 16.4 % Immature Granulocyte % (Auto) 4.8 % 4.2 % Immature Granulocyte # (Auto) 0.63 K/uL 0.37 K/uL Nucleated RBC Absolute Count (auto) 0.04 K/uL 0.03 K/uL Nucleated Red Blood Cells % 0.3 % 0.3 % Prothrombin Time 10.9 SECONDS Prothromb Time International Ratio 1.0 Activated Partial Thromboplast Time 25.2 SECONDS Partial Thromboplastin Ratio 1.0 Sodium Level 128 mmol/L 131 mmol/L Potassium Level 4.6 mmol/L 4.3 mmol/L Chloride Level 93 mmol/L 97 mmol/L Carbon Dioxide Level 29 mmol/L 27 mmol/L Anion Gap 6.0 mmol/L 7.0 mmol/L Blood Urea Nitrogen 41 mg/dl 23 mg/dl Creatinine 1.43 mg/dl 0.91 mg/dl Est Creatinine Clear Calc Drug Dose 39.4 ml/min 61.6 ml/min Estimated GFR () 54.4 93.9 Estimated GFR (Non- 46.9 81.0 BUN/Creatinine Ratio 28.9 25.0 Random Glucose 218 mg/dl 119 mg/dl Calcium Level 8.6 mg/dl 8.7 mg/dl Magnesium Level 1.3 mg/dl Total Bilirubin 0.3 mg/dl Direct Bilirubin < 0.1 mg/dl Aspartate Amino Transf (AST/SGOT) 10 U/L Alanine Aminotransferase (ALT/SGPT) 16 U/L Alkaline Phosphatase 114 U/L Troponin I < 0.015 ng/ml Total Protein 6.7 gm/dl Albumin 2.7 gm/dl Lipase 79 U/L Thyroid Stimulating Hormone (TSH) 1.040 uIu/ml Urine Color YELLOW Urine Appearance CLEAR Urine pH 5.0 Urine Specific Gilmore 1.025 Urine Protein NEG Urine Glucose (UA) 3+ Urine Ketones NEG Urine Occult Blood NEG Urine Nitrite NEG Urine Bilirubin NEG Urine Urobilinogen NEG Urine Leukocyte Esterase NEG Bedside Glucose 157 mg/dl Test 06/25/17 07:50 Bedside Glucose 144 mg/dl Assessment and Plan This is a 76 yo M with PMHx of SCC of the epiglottis T2, M2 C stage IV, originally diagnosed on 04/04/17 currently undergoing cisplatin and XRT which began on 05/28/17 and is followed by Dr. Costello. Completed 3 sessions of chemo so far, XRT daily x 3 weeks at time of admission. Other PMHx includes HTN, HLD, BPH, DM II, GERD, and restless leg syndrome. SCC of the epiglottis T2, M2 C stage IV Intractable nausea and vomiting Severe Protein Calorie Malnutrition - Admit to [facility] - Oncology consulted, patient follows with Dr. Costello as an outpatient - appreciate recs - Order Zofran 4 mg IV Q4H, Compazine 10 mg q6h, Phenergan IV as anti-emetics, given 1x dose of reglan today. - Continue NSS at 100 ml/hr even though Cr. improved due to poor PO/PEG intake. - Continue analgesia with fentanyl 50 mcg daily, and percocets 2 tabs PO Q6H prn - Will order dietitian consult as the patient uses Nutren 2.0 supplemental tube feedings, 4oz Q2H. Patient has a weight loss of 18 pounds since beginning chemotherapy at end of May. - PT and OT to eval Oral Candidiasis - Continue diflucan IV 200 mg daily - will likely need at least a 10 day course. SAHIL - resolved, Cr. back to baseline - Will change heparin to lovenox sub q for DVT ppx so pt only getting 1 injection daily - Continue to hold metformin due to diminished PO/PEG intake. DM type II - Reduce Lantus in half - cont 17U HS, until pt able to tolerate tube feeds at baseline. Home dosing is equal to 35 units every afternoon - ISS with Accu-Cheks ACHS MYRIAM ion CPAP - Will order in house CPAP machine, patient does not wear supplemental O2 at baseline HTN - continue losartan 25 mg daily Hyperlipidemia - Continue Crestor 20 mg daily BPH - Continue Flomax 5 mg daily GERD - Continue Prilosec 20 mg daily DVT ppx: heparin, teds, scds CODE STATUS: DO NOT RESUSCITATE, this was discussed with the patient and his at bedside Disposition: Patient from home, lives with , possible dc in 1-2 days pending improvement
[2017-06-25] MEDS: HEPARIN SOD 5000 UNIT/0.5 ML CARP SQ SCH (08:36)
[2017-06-25] MEDS: INSULIN ASPART 100 UNITS/ML 3 ML PEN SC SCH ×4 (08:38→20:31)
--- NOTE | 2017-06-25 10:27 | Clinical Documentation Query ---
NITESH Gunter : CLINICAL DOCUMENTATION QUERY This is a 76 yo M with PMHx of SCC of the epiglottis T2, M2 C stage IV, originally diagnosed on 04/04/17 currently undergoing cisplatin and XRT which began on 05/28/17. Documentation includes the following: "Will order dietitian consult as the patient uses Nutren 2.0 supplemental tube feedings, 4oz Q2H. Patient has a weight loss of 18 pounds beginning chemotherapy". Patient has lost 10% of body weight since May 20, 2017. Oral intake poor per patient. In your clinical opinion is this patient being managed for: (x ) Severe protein-calorie malnutrition ( ) Not Agree ( ) Other explanation of clinical findings (Please Explain) ( ) Unable to determine (Please Define) ( ) Need to Discuss The medical record reflects the following clinical findings, treatment, and risk factors. Clinical Indicators: As above. Significant weight loss over short interval, unintentional Treatment: Chocolate Dipper consultation, tube feeds Risk Factors: SCCA of epiglottis, oral candidiasis, medications Please clarify and document your clinical opinion in the progress notes and discharge summary. Terms such as "probable", "suspected", "likely", "questionable", "possible", or "still to be ruled out" are acceptable. IF IN AGREEMENT, YOU MUST DOCUMENT ABOVE DIAGNOSTIC STATEMENT IN DAILY PROGRESS NOTES AND DISCHARGE SUMMARY. This document is not part of the patient's record. Thank You, Jimmy Bedoya, RN [phone]
[2017-06-25] MEDS ORDERED: METOCLOPRAMIDE HCL INJ 5 MG/ML 2 ML VIAL IV. STA (11:08)
[2017-06-25] MEDS ORDERED: ONDANSETRON INJ 2 MG/ML 2 ML VIAL IV PRN (15:45)
[2017-06-25] MEDS: ONDANSETRON INJ 8 MG in DEXTROSE 5% 50ML 50 ML IV PRN (15:49)
[2017-06-25] MEDS: PROCHLORPERAZINE INJ 10 MG in SYRINGE 8 ML IV PRN (15:49)
[2017-06-25] MEDS: METOCLOPRAMIDE HCL INJ 5 MG/ML 2 ML VIAL IV. SCH ×2 (17:30→22:43)
[2017-06-25] MEDS: FINASTERIDE 5 MG TAB PO SCH (20:25)
[2017-06-25] MEDS: TAMSULOSIN HCL 0.4 MG CAP PO SCH (20:25)
[2017-06-25] MEDS: LOSARTAN POTASSIUM 50 MG TAB PO SCH (20:26)
[2017-06-25] MEDS: ROPINIROLE HCL 1 MG TAB PO SCH (20:26)
[2017-06-25] MEDS: TEMAZEPAM 15 MG CAP PO SCH (20:27)
[2017-06-25] MEDS: ROSUVASTATIN CALCIUM 20 MG TAB PO SCH (20:27)
[2017-06-25] MEDS: TRAVOPROST Z 0.004% OPH SOLN 2.5 ML BTL OPB SCH (20:30)
[2017-06-25] MEDS: INSULIN GLARGINE SOLOSTAR 100 UNITS/ML 3 ML PEN SC SCH (20:34)
[2017-06-25] MEDS: FLUCONAZOLE / NSS 200 MG in PREMIXED NSS 100 ML IV SCH (20:36)
[2017-06-26] VITALS (8 sets, daily range): BP systolic 135–160; BP diastolic 79–87; PULSE 76–84; TEMP 36.8–37.2; O2SAT 94–97; BMI 29.0
[2017-06-26] MEDS: CHECK FENTANYL PATCH PLACEMENT SCH ×2 (00:31→07:33)
[2017-06-26] MEDS: ONDANSETRON INJ 8 MG in DEXTROSE 5% 50ML 50 ML IV PRN ×2 (02:57→13:04)
[2017-06-26] MEDS: SODIUM CHLORIDE 0.9% 1000ML 1,000 ML IV SCH (05:15)
[2017-06-26] MEDS: METOCLOPRAMIDE HCL INJ 5 MG/ML 2 ML VIAL IV. SCH ×3 (05:15→16:22)
[2017-06-26 06:30] LABS: BASO % 0.1 %; BASO ABS # 0.01 K/uL (0-0.2); EOS % 0.1 %; EOS ABS # 0.01 K/uL (0-0.5); HEMATOCRIT 26.1 % (42-52); HEMOGLOBIN 9.2 g/dL (14.0-18.0); IG# 0.22 K/uL (0.00-0.02); LYMPH % 11.7 %; LYMPH ABS # 1.04 K/uL (1.2-3.4); MEAN CELL VOLUME 89.1 fL (80-100); MEAN CORPUSCULAR HEMOGLOBIN 31.4 pg (25-34); MEAN CORPUSCULAR HGB CONC 35.2 g/dl (32-36); MEAN PLATELET VOLUME 9.5 fL (7.4-10.4); MONO % 16.4 %; MONO ABS # 1.46 K/uL (0.11-0.59); NEUT % 69.2 %; NEUT ABS # 6.18 K/uL (1.4-6.5); PLATELET COUNT 191 K/uL (130-400); RED CELL DISTRIBUTION WIDTH CV 16.9 % (11.5-14.5); RED CELL DISTRIBUTION WIDTH SD 50.7 fL (36.4-46.3); WHITE BLOOD COUNT 8.92 K/uL (4.8-10.8)
[2017-06-26 06:53] LABS: CALCIUM 8.8 mg/dl (8.5-10.1); CREATININE 0.72 mg/dl (0.60-1.40)
[2017-06-26] MEDS: INSULIN ASPART 100 UNITS/ML 3 ML PEN SC SCH ×4 (07:27→20:21)
[2017-06-26] MEDS: MULTIVITAMIN TAB PO SCH (07:31)
[2017-06-26] MEDS: ZINC SULFATE 220 MG CAP PO SCH (07:31)
[2017-06-26] MEDS: TIMOLOL MALEATE 0.5% OP SOLN 5 ML BTL OPB SCH (07:34)
[2017-06-26] MEDS: PROCHLORPERAZINE INJ 10 MG in SYRINGE 8 ML IV PRN (07:48)
[2017-06-26] MEDS ORDERED: ENOXAPARIN 40 MG/0.4 ML SYR SQ SCH (08:00)
[2017-06-26] MEDS ORDERED: FENTANYL PATCH REMOVE & WASTE SCH (08:59)
[2017-06-26] MEDS ORDERED: FENTANYL 50 MCG/HR TDSY TD SCH (09:00)
--- NOTE | 2017-06-26 09:22 | Hematology/Oncology Prog Note ---
Hematology/Onc Progress Note Date of Service Jun 26, 2017. Diagnoses Refractory nausea vomiting Head and neck squamous cell carcinoma Oral thrush Medications Medications Administered Medications (Trade) Dose Ordered Sig/Sotero Route Start Time Stop Time Status Last Admin Dose Admin Sodium Chloride 1,000 ml @ 999 mls/hr Q1H1M STAT IV 06/24/17 13:29 06/24/17 14:29 DC 06/24/17 14:01 999 MLS/HR Ondansetron HCl (Zofran Inj) 4 mg NOW STAT IV 06/24/17 13:29 06/24/17 13:32 DC 06/24/17 14:00 4 MG Magnesium Sulfate (Magnesium Sulfate) 2 gm NOW STAT IV 06/24/17 14:41 06/24/17 14:42 DC 06/24/17 15:04 2 GM Sodium Chloride 1,000 ml @ 125 mls/hr Q8H STAT IV 06/24/17 14:41 06/24/17 19:54 DC 06/24/17 15:05 125 MLS/HR Heparin Sodium (Porcine) (Heparin Sq 5000 Unit/0.5ml) 5,000 unit Q8H SQ 06/24/17 22:00 06/25/17 12:03 DC 06/25/17 08:36 5,000 UNIT Ondansetron HCl (Zofran Inj) 4 mg Q6H PRN IV 06/24/17 16:00 06/25/17 15:31 DC 06/25/17 14:16 4 MG Atenolol (Tenormin Tab) 25 mg QPM PO 06/24/17 21:00 07/24/17 20:59 06/25/17 20:25 25 MG Finasteride (Proscar Tab) 5 mg HS PO 06/24/17 21:00 07/24/17 20:59 06/25/17 20:25 5 MG Losartan Potassium (coZAAR TAB) 50 mg QPM PO 06/24/17 21:00 07/24/17 20:59 06/25/17 20:26 50 MG Ropinirole HCl (Requip Tab) 0.5 mg HS PO 06/24/17 21:00 07/24/17 20:59 06/25/17 20:26 0.5 MG Rosuvastatin Calcium (Crestor Tab) 20 mg HS PO 1/22/18 21:00 07/24/17 20:59 06/25/17 20:27 20 MG Tamsulosin HCl (Flomax Cap) 0.4 mg HS PO 06/24/17 21:00 07/24/17 20:59 06/25/17 20:25 0.4 MG Temazepam (Restoril Cap) 30 mg HS PO 06/24/17 21:00 07/24/17 20:59 06/25/17 20:27 30 MG Timolol Maleate (Timoptic 0.5% Oph Soln) 1 drops QAM OPB 06/25/17 08:00 07/25/17 08:59 06/26/17 07:34 1 DROPS Travoprost (Travatan Z) 1 drops HS OPB 06/24/17 21:00 07/24/17 20:59 06/25/17 20:30 1 DROPS Sodium Chloride 1,000 ml @ 100 mls/hr Q10H IV 06/24/17 22:45 06/26/17 22:44 06/26/17 05:15 100 MLS/HR Insulin Glargine (Lantus Solostar Pen) 17 units QPM SC 06/24/17 21:00 07/24/17 20:59 06/25/17 20:34 17 UNITS Insulin Aspart (novoLOG ASPART) SLIDING SCALE If C... ACHS SC 06/24/17 16:00 07/24/17 15:59 06/25/17 12:49 1 UNITS Dextrose (Dextrose 50% 50ML Syringe) 25-50ML OF 50% DW IV FOR... UD PRN IV 06/24/17 16:00 07/24/17 15:59 06/26/17 07:25 25 ML Miscellaneous Information (Check Fentanyl Patch Placement) 1 ea QS N/A 06/25/17 00:00 07/25/17 00:00 06/26/17 07:33 1 EA Fluconazole/ Sodium Chloride 200 mg/Prmx 100 ml @ 100 mls/hr DAILY@2000 IV 06/24/17 20:00 07/04/17 19:59 06/25/17 20:36 100 MLS/HR Metoclopramide HCl (Reglan Inj) 10 mg NOW STAT IV. 06/25/17 11:08 06/25/17 11:14 DC 06/25/17 11:38 10 MG Enoxaparin Sodium (Lovenox Inj) 40 mg DAILY SQ 06/26/17 08:00 06/26/17 08:01 DC 06/26/17 07:33 40 MG Prochlorperazine Edisylate 10 mg/ Syringe 10 ml @ 5 mls/min Q6H PRN IV 06/25/17 15:30 07/25/17 15:29 06/26/17 07:48 5 MLS/MIN Ondansetron HCl 8 mg/Dextrose 54 ml @ 216 mls/hr Q8H PRN IV 06/25/17 15:45 07/25/17 15:44 06/26/17 02:57 216 MLS/HR Metoclopramide HCl (Reglan Inj) 10 mg Q6H IV. 06/25/17 17:00 07/25/17 16:59 06/26/17 05:15 10 MG Subjective Continues to have nausea and vomiting. He states with food he eats does also get stuck in his throat. Review of Systems: Constitutional: Negative for night sweats, or fever Eyes: Negative for event change of vision ENT: As before retropharyngeal thrush. Cardiovascular: Negative for chest pain, palpitations, dizziness, diaphoresis Respiratory: Negative for new shortness of breath,hemoptysis, or purulent cough Gastrointestinal: Negative for diarrhea, hematemesis, melena, nausea, vomiting , or dyspepsia Integumentary (skin): Negative for rash or jaundice discoloration Neurological: Negative for weakness, seizure activity, headache, or dizziness Lymphatic/Hematologic: Negative for petechiae, bleeding or new adenopathy Musculoskeletal: Negative for new joint or back pain Allergic/Immunologic: Negative for unusual rash or pruritis. Vital Signs Vital Signs Past 12 Hours Date Time Temp Pulse Resp B/P (MAP) Pulse Ox O2 Delivery O2 Flow Rate FiO2 06/26/17 08:01 37.0 77 16 135/85 (102) 96 Room Air 06/26/17 03:31 37.2 77 20 142/82 (102) 94 Room Air 06/26/17 00:00 Room Air 06/25/17 23:24 37.5 77 18 129/79 (96) 95 Room Air Physical Exam Constitutional: vitals are stable. Eyes: Eyes are EAGLE EOMI without conjuctival erythema or icterus. ENT: External examination was negative for masses. Retropharyngeal thrush. Neck: Negative for masses or palpable thyromegaly Respiratory: Lung sounds were generally clear bilaterally Cardiovascular: Heart was RRR without significant murmur, gallops aoe rubs Gastrointestinal: No palpable hepatic or splenomegaly. The abdomen was soft with normal bowel sounds. Lymphatic system: there was no palpable peripheral lymphadenopathy Musculoskeletal System: The musculoskeletal system seemed concordant with age. Skin: The skin was negative for jaundice. Neurologic exam: The exam was negative for any focal findings. Deep tendon reflexes were equal and symmetrical. Psychiatric exam: Was essentially negative with normal mood and effect. Extremities: negative for edema Laboratory Last 24 Hours Test 06/25/17 11:51 06/25/17 16:43 06/25/17 19:55 06/26/17 05:07 Bedside Glucose 163 mg/dl 145 mg/dl 132 mg/dl White Blood Count 8.92 K/uL Red Blood Count 2.93 M/uL Hemoglobin 9.2 g/dL Hematocrit 26.1 % Mean Corpuscular Volume 89.1 fL Mean Corpuscular Hemoglobin 31.4 pg Mean Corpuscular Hemoglobin Concent 35.2 g/dl Platelet Count 191 K/uL Mean Platelet Volume 9.5 fL Neutrophils (%) (Auto) 69.2 % Lymphocytes (%) (Auto) 11.7 % Monocytes (%) (Auto) 16.4 % Eosinophils (%) (Auto) 0.1 % Basophils (%) (Auto) 0.1 % Neutrophils # (Auto) 6.18 K/uL Lymphocytes # (Auto) 1.04 K/uL Monocytes # (Auto) 1.46 K/uL Eosinophils # (Auto) 0.01 K/uL Basophils # (Auto) 0.01 K/uL RDW Standard Deviation 50.7 fL RDW Coefficient of Variation 16.9 % Immature Granulocyte % (Auto) 2.5 % Immature Granulocyte # (Auto) 0.22 K/uL Sodium Level 133 mmol/L Potassium Level 4.0 mmol/L Chloride Level 100 mmol/L Carbon Dioxide Level 25 mmol/L Anion Gap 8.0 mmol/L Blood Urea Nitrogen 18 mg/dl Creatinine 0.72 mg/dl Est Creatinine Clear Calc Drug Dose 77.5 ml/min Estimated GFR () 104.3 Estimated GFR (Non- 90.0 BUN/Creatinine Ratio 25.3 Random Glucose 56 mg/dl Calcium Level 8.8 mg/dl Test 06/26/17 07:00 06/26/17 07:03 06/26/17 07:47 Bedside Glucose 56 mg/dl 62 mg/dl 125 mg/dl Assessment & Plan Fracture nausea vomiting. Again this is not as a result of chemotherapy. I have to wonder whether the fentanyl patch that he is on is responsible. I believe we should stop that and see if it help relieve his nausea/vomiting. If it continues then CT scan of the head certainly does seem warranted. I did review this with Dr. Bansal and nursing staff today and will go on and DC the fentanyl patch. Use as needed oxycodone for pain for now.
[2017-06-26] MEDS: D5W AND 1/2NSS 1,000 ML IV SCH (10:04)
--- NOTE | 2017-06-26 14:07 | Hospitalist Progress Note ---
Hospitalist Progress Note Date of Service Jun 26, 2017. Subjective Pt evaluation today including: conversation w/ patient, physical exam, chart review, lab review, conversation w/ pmo consultant PO Intake: Poor Voiding: no voiding problems The patient was seen and examined this morning. Pt reports feeling about the same as today. He is still having n/v despite antiemetics, feels tired and weak. Dr. Rutherford discussed trial of being off fentanyl patch with our team today - will trial. Considering imaging of brain to r/o metastasis to brain. Additional Comments: Constitutional: No fever, sweats or chills, + weakness and lethargy ongoing Eyes: No diplopia, no worsening or blurred vision ENT: normal hearing, + trouble swallowing, sore throat Respiratory: No cough, sputum, dyspnea at rest or on exertion Cardiovascular: No chest pain, tightness or palpitations Abdomen: See history of present illness Musculoskeletal: No joint pain, calf pain, swelling Neurologic: No weakness, numbness/tingling, or balance problems Psychiatric: No anxiety or depression Skin: No rash or itch Objective Vital Signs Date Time Temp Pulse Resp B/P (MAP) Pulse Ox O2 Delivery O2 Flow Rate FiO2 06/26/17 11:34 36.8 80 18 160/86 (110) 97 Room Air 06/26/17 08:01 37.0 77 16 135/85 (102) 96 Room Air 06/26/17 08:00 Room Air 06/26/17 03:31 37.2 77 20 142/82 (102) 94 Room Air 06/26/17 00:00 Room Air 06/25/17 23:24 37.5 77 18 129/79 (96) 95 Room Air 06/25/17 20:22 88 147/88 (107) 06/25/17 20:00 Room Air 06/25/17 19:34 36.6 88 20 156/78 (104) 96 Room Air 06/25/17 16:00 Room Air 06/25/17 15:28 37.0 82 10 132/85 (101) 94 Room Air Physical Exam Notes: General: awake, alert, no apparent distress Head: Normocephalic, atraumatic ENT: PERRL, EOMI, no pharyngeal exudate, mucous membranes dry, + oral candidiasis, erythema over the right side of neck Chest: Clear to auscultation, on room air, no adventitious breath sounds, + Mediport in left chest wall accessed Cardiac: Regular rate and rhythm, soft systolic murmur, no JVD Abdominal: NABS x 4 quadrants, + PEG tube in place, no surrounding erythema, soft, nontender to palpation, no rebound, guarding or tenderness Extremities: Normal inspection, no peripheral edema or erythema, calfs nontender to palpation Psych: Normal mood and affect Neuro: AAO x 3, speech is clear, no peripheral sensory deficits Laboratory Results Last 24 Hours Test 06/25/17 16:43 06/25/17 19:55 06/26/17 05:07 06/26/17 07:03 Bedside Glucose 145 mg/dl 132 mg/dl 62 mg/dl White Blood Count 8.92 K/uL Red Blood Count 2.93 M/uL Hemoglobin 9.2 g/dL Hematocrit 26.1 % Mean Corpuscular Volume 89.1 fL Mean Corpuscular Hemoglobin 31.4 pg Mean Corpuscular Hemoglobin Concent 35.2 g/dl Platelet Count 191 K/uL Mean Platelet Volume 9.5 fL Neutrophils (%) (Auto) 69.2 % Lymphocytes (%) (Auto) 11.7 % Monocytes (%) (Auto) 16.4 % Eosinophils (%) (Auto) 0.1 % Basophils (%) (Auto) 0.1 % Neutrophils # (Auto) 6.18 K/uL Lymphocytes # (Auto) 1.04 K/uL Monocytes # (Auto) 1.46 K/uL Eosinophils # (Auto) 0.01 K/uL Basophils # (Auto) 0.01 K/uL RDW Standard Deviation 50.7 fL RDW Coefficient of Variation 16.9 % Immature Granulocyte % (Auto) 2.5 % Immature Granulocyte # (Auto) 0.22 K/uL Sodium Level 133 mmol/L Potassium Level 4.0 mmol/L Chloride Level 100 mmol/L Carbon Dioxide Level 25 mmol/L Anion Gap 8.0 mmol/L Blood Urea Nitrogen 18 mg/dl Creatinine 0.72 mg/dl Est Creatinine Clear Calc Drug Dose 77.5 ml/min Estimated GFR () 104.3 Estimated GFR (Non- 90.0 BUN/Creatinine Ratio 25.3 Random Glucose 56 mg/dl Calcium Level 8.8 mg/dl Test 06/26/17 07:47 06/26/17 11:35 Bedside Glucose 125 mg/dl 94 mg/dl Assessment and Plan This is a 76 yo M with PMHx of SCC of the epiglottis T2, M2 C stage IV, originally diagnosed on 04/04/17 currently undergoing cisplatin and XRT which began on 05/28/17 and is followed by Dr. Costello. Completed 3 sessions of chemo so far, XRT daily x 3 weeks at time of admission. Other PMHx includes HTN, HLD, BPH, DM II, GERD, and restless leg syndrome. SCC of the epiglottis T2, M2 C stage IV Intractable nausea and vomiting Severe Protein Calorie Malnutrition - Admit to [facility] - Oncology consulted, patient follows with Dr. Costello as an outpatient - appreciate recs - Order Zofran 8 mg IV Q4H, Compazine 10 mg IV q6h, Phenergan IV and Reglan IV - Hold fentanyl patch to see if this is causing worsening n/v - dosage was increased from 25 to 50 mcg 2 days prior to admission. - Checking MRI brain combo to assess for mets - Continue NSS at 100 ml/hr even though Cr. improved due to poor PO/PEG intake. - Cont percocets 2 tabs PO Q6H prn - Will order dietitian consult as the patient uses Nutren 2.0 supplemental tube feedings, 4oz Q2H. - on hold for increased n/v. Patient has a weight loss of 18 pounds since beginning chemotherapy at end of May. - PT and OT to eval Oral Candidiasis - Continue diflucan IV 200 mg daily started on 06/24 - will likely need at least a 10 day course. SAHIL - resolved, Cr. back to baseline - Will change heparin to lovenox sub q for DVT ppx so pt only getting 1 injection daily - Continue to hold metformin due to diminished PO/PEG intake. DM type II - Reduce Lantus further with low glucoses in the 50s-60s overnight, 12 U HS, until pt able to tolerate tube feeds at baseline. Home dosing is equal to 35 units every afternoon - ISS with Accu-Cheks ACHS MYRIAM ion CPAP - Will order in house CPAP machine, patient does not wear supplemental O2 at baseline HTN - continue losartan 25 mg daily Hyperlipidemia - Continue Crestor 20 mg daily BPH - Continue Flomax 5 mg daily GERD - Continue Prilosec 20 mg daily DVT ppx: heparin, teds, scds CODE STATUS: DO NOT RESUSCITATE, this was discussed with the patient and his at bedside Disposition: Patient from home, lives with , possible dc in 1-2 days pending improvement
[2017-06-26] MEDS ORDERED: CEFTRIAXONE SOD INJ 1,000 MG in DEXTROSE 5% 50ML 50 ML IV SCH (16:00)
[2017-06-26] MEDS: FLUCONAZOLE / NSS 200 MG in PREMIXED NSS 100 ML IV SCH (20:20)
[2017-06-26] MEDS: TAMSULOSIN HCL 0.4 MG CAP PO SCH (20:23)
[2017-06-26] MEDS: FINASTERIDE 5 MG TAB PO SCH (20:23)
[2017-06-26] MEDS: TRAVOPROST Z 0.004% OPH SOLN 2.5 ML BTL OPB SCH (20:23)
[2017-06-26] MEDS: LOSARTAN POTASSIUM 50 MG TAB PO SCH (20:23)
[2017-06-26] MEDS: ROSUVASTATIN CALCIUM 20 MG TAB PO SCH (20:23)
[2017-06-26] MEDS: ROPINIROLE HCL 1 MG TAB PO SCH (20:24)
[2017-06-26] MEDS: TEMAZEPAM 15 MG CAP PO SCH (20:24)
[2017-06-26] MEDS: INSULIN GLARGINE SOLOSTAR 100 UNITS/ML 3 ML PEN SC SCH (20:27)
[2017-06-26] MEDS: OXYCODONE/ACETAMINOPHEN 5-325 TAB PO PRN (20:50)
[2017-06-26] MEDS ORDERED: GADAVIST IV PRN (22:20)
--- NOTE | 2017-06-26 22:29 | DIAGNOSTIC IMAGING REPORT ---
MRI OF THE BRAIN COMBO CLINICAL HISTORY: Head and neck cancer. COMPARISON STUDY: No priors. TECHNIQUE: MRI of the brain was performed utilizing various T1 and T2-weighted sequences in the axial, sagittal, and coronal planes. Contrast-enhanced sequences were acquired following the administration of 7 cc of Gadavist. FINDINGS: Brain parenchyma: There are age-related involutional changes noting mild to moderate patchy subcortical and periventricular microangiopathic disease. There is no hemorrhage or mass effect. There is no restricted diffusion to suggest acute ischemia. No enhancing mass lesion is identified on the postcontrast images. Nunn-white matter differentiation is preserved. No extra-axial fluid collection is seen. The cerebellar tonsils are normal in configuration. Ventricles, sulci, and cisterns: Prominent secondary to involutional change. Pituitary and sella: Unremarkable. Intracranial vasculature: Normal flow voids are maintained at the skull base. Orbits: The bony orbits are grossly intact. Orbital contents are normal in appearance noting bilateral ocular lens implants. Sinuses and mastoids: Mild circumferential mucosal thickening is seen within the left maxillary antrum. The remaining paranasal sinuses are clear. There is a small left mastoid effusion. Calvarium: Unremarkable. Cervical cord: Partially visualized cervical spinal cord is normal in morphology and signal intensity. IMPRESSION: 1. No acute intracranial abnormality. 2. There is no evidence of intracranial metastatic disease. Electronically signed by: Rodger Lowery M.D. 06/26/2017 10:27 PM Dictated Date/Time: 06/26/2017 10:24 PM
[2017-06-27] VITALS (9 sets, daily range): BP systolic 124–168; BP diastolic 73–100; PULSE 72–101; TEMP 36.6–37.2; O2SAT 96–97; BMI 28.8
[2017-06-27] MEDS: D5W AND 1/2NSS 1,000 ML IV SCH ×3 (00:20→23:16)
[2017-06-27] MEDS: METOCLOPRAMIDE HCL INJ 5 MG/ML 2 ML VIAL IV. SCH ×5 (00:20→23:15)
[2017-06-27] MEDS: OXYCODONE/ACETAMINOPHEN 5-325 TAB PO PRN ×3 (03:49→16:57)
[2017-06-27 05:21] LABS: BASO % 0.3 %; BASO ABS # 0.02 K/uL (0-0.2); EOS % 0.1 %; EOS ABS # 0.01 K/uL (0-0.5); HEMATOCRIT 26.1 % (42-52); HEMOGLOBIN 8.8 g/dL (14.0-18.0); IG# 0.13 K/uL (0.00-0.02); LYMPH ABS # 0.97 K/uL (1.2-3.4); MEAN CELL VOLUME 89.1 fL (80-100); MEAN CORPUSCULAR HGB CONC 33.7 g/dl (32-36); MEAN PLATELET VOLUME 9.2 fL (7.4-10.4); MONO % 20.4 %; MONO ABS # 1.53 K/uL (0.11-0.59); NEUT % 64.5 %; NEUT ABS # 4.83 K/uL (1.4-6.5); PLATELET COUNT 192 K/uL (130-400); RED CELL DISTRIBUTION WIDTH CV 17.1 % (11.5-14.5); RED CELL DISTRIBUTION WIDTH SD 50.6 fL (36.4-46.3); WHITE BLOOD COUNT 7.49 K/uL (4.8-10.8)
[2017-06-27] MEDS: SODIUM CHLORIDE 0.9% 1000ML 1,000 ML IV SCH ×2 (07:32→07:33)
[2017-06-27] MEDS: MULTIVITAMIN TAB PO SCH (08:00)
[2017-06-27] MEDS: ZINC SULFATE 220 MG CAP PO SCH (08:00)
[2017-06-27] MEDS: TIMOLOL MALEATE 0.5% OP SOLN 5 ML BTL OPB SCH (08:26)
[2017-06-27] MEDS: INSULIN ASPART 100 UNITS/ML 3 ML PEN SC SCH ×4 (08:27→20:52)
[2017-06-27] MEDS: CIPROFLOXACIN 500 MG TAB PEG SCH ×2 (09:13→20:46)
--- NOTE | 2017-06-27 11:22 | Hematology/Oncology Prog Note ---
Hematology/Onc Progress Note Date of Service Jun 27, 2017. Diagnoses Refractory nausea vomiting Head and neck squamous cell carcinoma Oral thrush Medications Medications Administered Medications (Trade) Dose Ordered Sig/Sotero Route Start Time Stop Time Status Last Admin Dose Admin Sodium Chloride 1,000 ml @ 999 mls/hr Q1H1M STAT IV 06/24/17 13:29 06/24/17 14:29 DC 06/24/17 14:01 999 MLS/HR Ondansetron HCl (Zofran Inj) 4 mg NOW STAT IV 06/24/17 13:29 06/24/17 13:32 DC 06/24/17 14:00 4 MG Magnesium Sulfate (Magnesium Sulfate) 2 gm NOW STAT IV 06/24/17 14:41 06/24/17 14:42 DC 06/24/17 15:04 2 GM Sodium Chloride 1,000 ml @ 125 mls/hr Q8H STAT IV 06/24/17 14:41 06/24/17 19:54 DC 06/24/17 15:05 125 MLS/HR Heparin Sodium (Porcine) (Heparin Sq 5000 Unit/0.5ml) 5,000 unit Q8H SQ 06/24/17 22:00 06/25/17 12:03 DC 06/25/17 08:36 5,000 UNIT Acetaminophen (Tylenol Tab) 650 mg Q4H PRN PO 06/24/17 16:00 07/24/17 15:59 06/26/17 22:53 650 MG Ondansetron HCl (Zofran Inj) 4 mg Q6H PRN IV 06/24/17 16:00 06/25/17 15:31 DC 06/25/17 14:16 4 MG Atenolol (Tenormin Tab) 25 mg QPM PO 06/24/17 21:00 07/24/17 20:59 06/26/17 20:24 25 MG Finasteride (Proscar Tab) 5 mg HS PO 06/24/17 21:00 07/24/17 20:59 06/26/17 20:23 5 MG Losartan Potassium (coZAAR TAB) 50 mg QPM PO 06/24/17 21:00 07/24/17 20:59 06/26/17 20:23 50 MG Oxycodone/ Acetaminophen (Percocet 5-325mg Tab) 2 tab Q12 PRN PO 06/24/17 16:00 06/27/17 11:17 DC 06/27/17 03:49 2 TAB Ropinirole HCl (Requip Tab) 0.5 mg HS PO 06/24/17 21:00 07/24/17 20:59 06/26/17 20:24 0.5 MG Rosuvastatin Calcium (Crestor Tab) 20 mg HS PO 06/24/17 21:00 07/24/17 20:59 06/26/17 20:23 20 MG Tamsulosin HCl (Flomax Cap) 0.4 mg HS PO 06/24/17 21:00 07/24/17 20:59 06/26/17 20:23 0.4 MG Temazepam (Restoril Cap) 30 mg HS PO 06/24/17 21:00 07/24/17 20:59 06/26/17 20:24 30 MG Timolol Maleate (Timoptic 0.5% Oph Soln) 1 drops QAM OPB 06/25/17 08:00 07/25/17 08:59 06/27/17 08:26 1 DROPS Travoprost (Travatan Z) 1 drops HS OPB 06/24/17 21:00 07/24/17 20:59 06/26/17 20:23 1 DROPS Sodium Chloride 1,000 ml @ 100 mls/hr Q10H IV 06/24/17 22:45 06/26/17 09:44 DC 06/26/17 05:15 100 MLS/HR Insulin Glargine (Lantus Solostar Pen) 17 units QPM SC 06/24/17 21:00 06/26/17 13:59 DC 06/25/17 20:34 17 UNITS Insulin Aspart (novoLOG ASPART) SLIDING SCALE If C... ACHS SC 06/24/17 16:00 07/24/17 15:59 06/25/17 12:49 1 UNITS Dextrose (Dextrose 50% 50ML Syringe) 25-50ML OF 50% DW IV FOR... UD PRN IV 06/24/17 16:00 07/24/17 15:59 06/26/17 07:25 25 ML Promethazine HCl 25 mg/Sodium Chloride 51 ml @ 204 mls/hr Q6H PRN IV 06/24/17 16:30 07/24/17 16:29 06/26/17 20:46 204 MLS/HR Miscellaneous (Fentanyl Patch Remove & Waste) 1 ea Q3D@0859 N/A 06/26/17 08:59 07/26/17 08:58 Future Hold 06/26/17 09:17 1 EA Miscellaneous Information (Check Fentanyl Patch Placement) 1 ea QS N/A 06/25/17 00:00 07/25/17 00:00 Future Hold 06/26/17 07:33 1 EA Fluconazole/ Sodium Chloride 200 mg/Prmx 100 ml @ 100 mls/hr DAILY@2000 IV 06/24/17 20:00 07/04/17 19:59 06/26/17 20:20 100 MLS/HR Lidocaine HCl/ Diphenhydramine HCl/Al Hydroxide/ Mg Hydroxide/ Glycerin/Barcode Q1H PRN MT 06/24/17 20:00 07/24/17 19:59 06/27/17 08:26 5 ML Metoclopramide HCl (Reglan Inj) 10 mg NOW STAT IV. 06/25/17 11:08 06/25/17 11:14 DC 06/25/17 11:38 10 MG Enoxaparin Sodium (Lovenox Inj) 40 mg DAILY SQ 06/26/17 08:00 06/26/17 08:01 DC 06/26/17 07:33 40 MG Prochlorperazine Edisylate 10 mg/ Syringe 10 ml @ 5 mls/min Q6H PRN IV 06/25/17 15:30 07/25/17 15:29 06/26/17 07:48 5 MLS/MIN Ondansetron HCl 8 mg/Dextrose 54 ml @ 216 mls/hr Q8H PRN IV 06/25/17 15:45 07/25/17 15:44 06/26/17 13:04 216 MLS/HR Metoclopramide HCl (Reglan Inj) 10 mg Q6H IV. 06/25/17 17:00 07/25/17 16:59 06/27/17 10:49 10 MG Dextrose/Sodium Chloride 1,000 ml @ 80 mls/hr [id number] IV 06/26/17 09:45 07/26/17 09:44 06/27/17 10:50 80 MLS/HR Insulin Glargine (Lantus Solostar Pen) 12 units QPM SC 06/26/17 21:00 07/24/17 20:59 06/26/17 20:27 12 UNITS Ceftriaxone Sodium 1000 mg/ Dextrose 60 ml @ 100 mls/hr DAILY@1600 IV 06/26/17 16:00 06/27/17 08:07 DC 06/26/17 16:21 100 MLS/HR Ciprofloxacin (Cipro Tab) 500 mg BID PEG 06/27/17 09:00 07/07/17 07:59 06/27/17 09:13 500 MG Subjective He states he has not had nausea today or any vomiting. Pain seems fairly well controlled. Head MRI yesterday was negative for metastatic disease. Review of Systems: Constitutional: Negative for , night sweats, or fever Eyes: Negative for event change of vision ENT: Negative for epistaxis, nasal discharge, his throat is sore with thrush Cardiovascular: Negative for chest pain, palpitations, dizziness, diaphoresis Respiratory: Negative for new shortness of breath,hemoptysis, or purulent cough Gastrointestinal: Negative for diarrhea, hematemesis, melena, no nausea, vomiting now, or dyspepsia Integumentary (skin): Negative for rash or jaundice discoloration Genitourinary: Negative for urinary frequency, hematuria, or dysuria Neurological: Negative for weakness, seizure activity, headache, or dizziness Lymphatic/Hematologic: Negative for petechiae, bleeding or new adenopathy Musculoskeletal: Negative for new joint or back pain. States his back does have some pain but I do not believe that is new. Allergic/Immunologic: Negative for unusual rash or pruritis. Vital Signs Vital Signs Past 12 Hours Date Time Temp Pulse Resp B/P (MAP) Pulse Ox O2 Delivery O2 Flow Rate FiO2 06/27/17 11:00 96 Room Air 06/27/17 10:41 36.6 72 16 124/73 (90) 96 Room Air 06/27/17 08:24 36.8 82 20 127/77 (94) 96 Room Air 06/27/17 08:00 Room Air 06/27/17 04:01 36.8 79 20 134/78 (96) 96 Room Air 06/27/17 00:00 97 Room Air Physical Exam Constitutional: vitals are stable. Eyes: Eyes are EAGLE EOMI without conjuctival erythema or icterus. ENT: External examination was negative for masses. Neck: Negative for masses or palpable thyromegaly Respiratory: Lung sounds were generally clear bilaterally Cardiovascular: Heart was RRR without significant murmur, gallops aoe rubs Gastrointestinal: No palpable hepatic or splenomegaly. The abdomen was soft with normal bowel sounds. Feeding tube in place Lymphatic system: there was no palpable peripheral lymphadenopathy Musculoskeletal System: The musculoskeletal system seemed concordant with age. Skin: The skin was negative for jaundice. Neurologic exam: The exam was negative for any focal findings. Deep tendon reflexes were equal and symmetrical. Psychiatric exam: Was essentially negative with normal mood and effect. Extremities: Negative for edema Laboratory Last 24 Hours Test 06/26/17 11:35 06/26/17 16:34 06/26/17 20:09 06/27/17 04:50 Bedside Glucose 94 mg/dl 169 mg/dl 179 mg/dl White Blood Count 7.49 K/uL Red Blood Count 2.93 M/uL Hemoglobin 8.8 g/dL Hematocrit 26.1 % Mean Corpuscular Volume 89.1 fL Mean Corpuscular Hemoglobin 30.0 pg Mean Corpuscular Hemoglobin Concent 33.7 g/dl Platelet Count 192 K/uL Mean Platelet Volume 9.2 fL Neutrophils (%) (Auto) 64.5 % Lymphocytes (%) (Auto) 13.0 % Monocytes (%) (Auto) 20.4 % Eosinophils (%) (Auto) 0.1 % Basophils (%) (Auto) 0.3 % Neutrophils # (Auto) 4.83 K/uL Lymphocytes # (Auto) 0.97 K/uL Monocytes # (Auto) 1.53 K/uL Eosinophils # (Auto) 0.01 K/uL Basophils # (Auto) 0.02 K/uL RDW Standard Deviation 50.6 fL RDW Coefficient of Variation 17.1 % Immature Granulocyte % (Auto) 1.7 % Immature Granulocyte # (Auto) 0.13 K/uL Polychromasia 1+ Tear Drop Cells 1+ Ovalocytes 1+ Test 06/27/17 07:37 Bedside Glucose 154 mg/dl Assessment & Plan His nausea and vomiting hopefully has abated now (off fenanyl). I understand his tube feedings have been on hold but I believe it is now time to reintroduce those as well as encourage him to get out of bed. Hopefully discharge can occur in the next 24-48 hours. He will have a follow-up in our clinic.
--- NOTE | 2017-06-27 11:36 | Hospitalist Progress Note ---
Hospitalist Progress Note Date of Service Jun 27, 2017. Subjective Pt evaluation today including: conversation w/ patient, conversation w/ family , physical exam, chart review, lab review Pain: Increased PO Intake: Fair Voiding: no voiding problems The patient was seen and examined this morning. Pt reports doing better today, his nausea has improved. He is having more generalized pain, and also more pain with swallowing. Denies any other acute complaints. I called and spoke with his after visiting with him around 11:15am and updated. His fentanyl has been stopped now for 24 hours, so this was likely the cause of increased nausea. Percocet adjusted for pain relief. Discussion was held regarding restarting tube feeds and pt is agreeable to this. Wound care consulted to look at peg due to some increased redness and drainage from around the site. Pt reports drainage has been present since placement. MRI of the brain was negative for metastasis. All their questions and concerns were addressed Additional Comments: Constitutional: No fever, sweats or chills, + weakness and lethargy improving Eyes: No diplopia, no worsening or blurred vision ENT: normal hearing, + trouble swallowing, sore throat unchanged, using magic swizzle Respiratory: No cough, sputum, dyspnea at rest or on exertion Cardiovascular: No chest pain, tightness or palpitations Abdomen: no abd pain, +nausea but improving, no vomiting, bowels regular. Musculoskeletal: No joint pain, calf pain, swelling Neurologic: No weakness, numbness/tingling, or balance problems Psychiatric: No anxiety or depression Skin: No rash or itch Objective Vital Signs Date Time Temp Pulse Resp B/P (MAP) Pulse Ox O2 Delivery O2 Flow Rate FiO2 06/27/17 11:00 96 Room Air 06/27/17 10:41 36.6 72 16 124/73 (90) 96 Room Air 06/27/17 08:24 36.8 82 20 127/77 (94) 96 Room Air 06/27/17 08:00 Room Air 06/27/17 04:01 36.8 79 20 134/78 (96) 96 Room Air 06/27/17 00:00 97 Room Air 06/26/17 22:59 37.0 82 20 149/80 (103) 95 Room Air 06/26/17 21:54 135/79 (97) 06/26/17 20:00 97 Room Air 06/26/17 19:15 36.9 84 20 152/87 (108) 97 Room Air 06/26/17 16:00 Room Air 06/26/17 15:18 36.8 76 17 144/83 (103) 95 Room Air 06/26/17 11:34 36.8 80 18 160/86 (110) 97 Room Air Physical Exam Notes: General: awake, alert, + mild distress Head: Normocephalic, atraumatic ENT: PERRL, EOMI, no pharyngeal exudate, mucous membranes dry, + oral candidiasis improving, + small red areas in posterior pharynx, erythema over the neck Chest: Clear to auscultation, on room air, no adventitious breath sounds, + Mediport in left chest wall accessed Cardiac: Regular rate and rhythm, soft systolic murmur, no JVD, normal peripheral pulses, good capillary refill Abdominal: NABS x 4 quadrants, + PEG tube in place, + increased minimal surrounding erythema, +purulent drainage with manipulation of peg, soft, nontender to palpation, no rebound, guarding or tenderness Extremities: Normal inspection, no peripheral edema or erythema, calfs nontender to palpation Psych: Normal mood and affect Neuro: AAO x 3, speech is clear, no peripheral sensory deficits Laboratory Results Last 24 Hours Test 06/26/17 11:35 06/26/17 16:34 06/26/17 20:09 06/27/17 04:50 Bedside Glucose 94 mg/dl 169 mg/dl 179 mg/dl White Blood Count 7.49 K/uL Red Blood Count 2.93 M/uL Hemoglobin 8.8 g/dL Hematocrit 26.1 % Mean Corpuscular Volume 89.1 fL Mean Corpuscular Hemoglobin 30.0 pg Mean Corpuscular Hemoglobin Concent 33.7 g/dl Platelet Count 192 K/uL Mean Platelet Volume 9.2 fL Neutrophils (%) (Auto) 64.5 % Lymphocytes (%) (Auto) 13.0 % Monocytes (%) (Auto) 20.4 % Eosinophils (%) (Auto) 0.1 % Basophils (%) (Auto) 0.3 % Neutrophils # (Auto) 4.83 K/uL Lymphocytes # (Auto) 0.97 K/uL Monocytes # (Auto) 1.53 K/uL Eosinophils # (Auto) 0.01 K/uL Basophils # (Auto) 0.02 K/uL RDW Standard Deviation 50.6 fL RDW Coefficient of Variation 17.1 % Immature Granulocyte % (Auto) 1.7 % Immature Granulocyte # (Auto) 0.13 K/uL Polychromasia 1+ Tear Drop Cells 1+ Ovalocytes 1+ Test 06/27/17 07:37 Bedside Glucose 154 mg/dl Assessment and Plan This is a 76 yo M with PMHx of SCC of the epiglottis T2, M2 C stage IV, originally diagnosed on 04/04/17 currently undergoing cisplatin and XRT which began on 05/28/17 and is followed by Dr. Costello. Completed 3 sessions of chemo so far, XRT daily x 3 weeks at time of admission. Other PMHx includes HTN, HLD, BPH, DM II, GERD, and restless leg syndrome. SCC of the epiglottis T2, M2 C stage IV Intractable nausea and vomiting Severe Protein Calorie Malnutrition - Admit to [facility] - Oncology consulted, patient follows with Dr. Costello as an outpatient - appreciate recs - Nausea improved - continue Zofran 8 mg IV Q4H, Compazine 10 mg IV q6h, Reglan IV Q6H - will d/c phenergan as overnight the patient became very confused with administration. - Fentanyl patch likely caused worsening n/v - as improved with holding, pain control with percocet 2 tab Q4H prn pain - MRI brain combo negative for mets - Peg tube with increased erythema and drainage from around the tube - consult wound and order wound culture - Cont D5W at 80mL/hr until fully tolerating tube feeds, will trial feeds today. dietitian consult as the patient uses Nutren 2.0 supplemental tube feedings, 4oz Q2H Patient has a weight loss of 18 pounds since beginning chemotherapy at end of May. - PT/OT Oral Candidiasis - Continue diflucan IV 200 mg daily started on 06/24 - will likely need at least a 10 day course. - improving - Continue magic swizzle for pain SAHIL - resolved, Cr. back to baseline - cont lovenox subq daily - Continue to hold metformin due to diminished PO/PEG intake. DM type II - Lantus 12 U HS, D5W on board, initiating tube feeds today, will adjust fluids and lantus as needed. Home dosing is equal to 35 units every afternoon - ISS with Accu-Cheks ACHAmmy MYRIAM ion CPAP - Will order in house CPAP machine, patient does not wear supplemental O2 at baseline HTN - continue losartan 25 mg daily Hyperlipidemia - Continue Crestor 20 mg daily BPH - Continue Flomax 5 mg daily GERD - Continue Prilosec 20 mg daily DVT ppx: heparin, teds, scds CODE STATUS: DO NOT RESUSCITATE, this was discussed with the patient and his at bedside Disposition: Patient from home, lives with , possible dc in 1-2 days pending improvement updated by phone this morning. All questions and concerns were answered.
[2017-06-27] MEDS ORDERED: ENOXAPARIN 40 MG/0.4 ML SYR SQ ONE (12:00)
[2017-06-27] MEDS ORDERED: NURSING VERBAL MED ORDER ONE (13:30)
[2017-06-27] MEDS: NUTREN PEG SCH ×5 (14:00→22:00)
[2017-06-27] MEDS ORDERED: FLUCONAZOLE 200 MG/5 ML UDP PO SCH (20:00)
[2017-06-27] MEDS: LOSARTAN POTASSIUM 50 MG TAB PO SCH (20:43)
[2017-06-27] MEDS: TRAVOPROST Z 0.004% OPH SOLN 2.5 ML BTL OPB SCH (20:44)
[2017-06-27] MEDS: TAMSULOSIN HCL 0.4 MG CAP PO SCH (20:45)
[2017-06-27] MEDS: ROPINIROLE HCL 1 MG TAB PO SCH (20:46)
[2017-06-27] MEDS: FINASTERIDE 5 MG TAB PO SCH (20:47)
[2017-06-27] MEDS: ROSUVASTATIN CALCIUM 20 MG TAB PO SCH (20:47)
[2017-06-27] MEDS: TEMAZEPAM 15 MG CAP PO SCH (20:49)
[2017-06-27] MEDS: INSULIN GLARGINE SOLOSTAR 100 UNITS/ML 3 ML PEN SC SCH (20:52)
[2017-06-28] VITALS: O2SAT 96
[2017-06-28] MEDS: NUTREN PEG SCH ×6 (00:19→11:30)
[2017-06-28] MEDS: OXYCODONE/ACETAMINOPHEN 5-325 TAB PO PRN ×2 (04:42→08:03)
[2017-06-28] MEDS: METOCLOPRAMIDE HCL INJ 5 MG/ML 2 ML VIAL IV. SCH ×2 (05:30→10:47)
[2017-06-28 05:59] VITALS: Ht 160 cm; Wt 74.5 kg
[2017-06-28 07:33] VITALS: BP 131/81; PULSE 83; TEMP 36.9; O2SAT 95
[2017-06-28] MEDS: CIPROFLOXACIN 500 MG TAB PEG SCH (07:41)
[2017-06-28] MEDS: TIMOLOL MALEATE 0.5% OP SOLN 5 ML BTL OPB SCH (07:41)
[2017-06-28] MEDS: MULTIVITAMIN TAB PO SCH (07:43)
[2017-06-28] MEDS: ZINC SULFATE 220 MG CAP PO SCH (07:43)
[2017-06-28] MEDS: INSULIN ASPART 100 UNITS/ML 3 ML PEN SC SCH ×2 (08:03→11:49)
[2017-06-28] MEDS ORDERED: CPR500 PEG (08:41)
[2017-06-28] MEDS ORDERED: FLUC200T PO (08:41)
[2017-06-28] MEDS ORDERED: OXYC-57 PO (08:41)
--- NOTE | 2017-06-28 10:15 | HEME/ONC PROGRESS NOTE ---
DATE: 06/28/2017 DIAGNOSES: 1. Oral candidiasis. 2. Refractory nausea and vomiting attributable to chemotherapeutic effect. 3. Epiglottal squamous cell carcinoma. SUBJECTIVE: Tristen is a pleasant 76-year-old gentleman, well known to [facility], currently under my care, receiving combined modality therapy for head and neck squamous cell carcinoma. According to nursing, he is making slow but steady progress. Discharge is pending possibly today. Unfortunately, Tristen has lost his voice and communication is difficult. He is tolerating his enteral feedings and receiving antifungals for oral candidiasis. He is not complaining of pain at present. Advised Tristen that we need to discuss how aggressive we push forward with therapy considering a prolonged hospitalization, which resulted from combined modality therapy. PHYSICAL EXAMINATION: GENERAL: He is in no acute distress. VITAL SIGNS: Temperature 36.9, pulse 83, respirations 18, and blood pressure 131/81. SKIN: Without rash or lesion. HEENT: Buccal mucosa without lesions or erosions. NECK: Supple. HEART: Regular rate and rhythm. LUNGS: Clear to auscultation bilaterally. ABDOMEN: Soft, nontender, and nondistended. EXTREMITIES: No clubbing, cyanosis or edema. NEUROLOGIC: Grossly intact. LABORATORY DATA: Pending. IMPRESSION: 1. Oral candidiasis. 2. Intractable nausea and vomiting. 3. Squamous cell carcinoma of the epiglottis. PLAN: From medical oncology perspective, there is nothing further to add. I would continue Diflucan for oral candidiasis. Maintain his current pain and anti-emesis regimen. We will arrange for Tristen to be seen in the office next week and discuss where we go therapeutically from this point. Appreciate the hospitalist's assisting us in the care of this very pleasant gentleman. We will effectively sign off today in the hopes of seeing Mr. Ewing in the office sometime next week.
--- NOTE | 2017-06-28 10:34 | Discharge Instructions ---
Discharge Instructions Date of Service Jun 28, 2017. Admission Reason for Admission: Intractable Nausea And Vomiting Discharge Discharge Diagnosis / Problem: Intractable Nausea and Vomiting Discharge Goals Goal(s): Decrease discomfort, Improve function, Increase independence, Improve disease control Activity Recommendations Activity Limitations: resume your previous activity Lifting Limitations: no more than 25 pounds, gradually increase as tolerated Exercise/Sports Limitations: rest today, gradually increase as tolerated May Resume Sexual Activity: when tolerated Shower/Bathe: no limitations Driving or Machine Use: Do Not Drive . Instructions / Follow-Up Instructions / Follow-Up You were admitted to [facility] with intractable nausea and vomiting due to fentanyl patch, and possible chemotherapy adverse effects. You were also diagnosed with oral thrush, a fungal infection in the mouth, and a Urinary tract infection. During your stay here you were treated with intravenous fluids, anti- nausea medications, your pain medications were adjusted, and you were treated with antifungal for thrush and antibiotic for the urinary tract infection. Imaging studies which were completed include MRI of the brain, and was normal, without any signs of metastasis of epiglottis cancer. Medications: 1. STOP Fentanyl. You have been given more Percocet pain medications to use every 4 hours, as needed for pain. 2. Resume metformin as directed starting tonight. 3. Take half dose of Lantus ( 17 Units) tonight, 06/28. Follow your blood glucose tomorrow with meals, if higher than 160 on all checks an you are tolerating tube feeds, you may resume your normal Lantus dose of 35 U at night. If you are not tolerating tube feeds then continue to only take half a dose until seen by your family physician. 4. Take diflucan 200 mg daily for Oral thrush x 6 more days. Finish this on 07/04/17. This will complete a 10 day course of antifungal treatment. 5. Take ciprofloxacin 500 mg twice daily x 6 more days for urinary tract infection. Finish on 07/04/17 - this will complete a 7 day course of antibiotics. Appointments: Follow up with your Primary Care Provider within 1-2 weeks. Follow up with oncology within 1 week, Dr. Costello. An appointment has been requested for you. Current Hospital Diet Patient's current hospital diet: Full Liquid Diet Discharge Diet Recommended Diet: Full Liquid Diet Pending Studies Studies pending at discharge: no Medical Emergencies . Who to Call and When: Medical Emergencies: If at any time you feel your situation is an emergency, please call 911 immediately. . Non-Emergent Contact Non-Emergency issues call your: Primary Care Provider, Oncologist Call Non-Emergent contact if: you have a fever, temperature is above 100.5, your pain is not controlled, your pain is worsening, your pain is unusual for you, your pain is concerning you, you have any medication questions . Past History Medical & Surgical History: (1) Squamous cell cancer of epiglottis (2) Intractable nausea and vomiting (3) Hyponatremia (4) Hypomagnesemia (5) GERD (gastroesophageal reflux disease) (6) HTN (hypertension) (7) Osteoarthritis (8) Glaucoma (9) HLD (hyperlipidemia) (10) MYRIAM on CPAP (11) DM II (diabetes mellitus, type II), controlled . "Provider Documentation" section prepared by Elzbieta Ferrell. . VTE Core Measure Inpt VTE Proph given/why not?: Unfractionated heparin SQ, T.E.D. Stockings, SCD 's
[2017-06-28 11:05] VITALS: BP 131/81; PULSE 83; TEMP 36.9; O2SAT 95
[2017-06-28] MEDS: D5W AND 1/2NSS 1,000 ML IV SCH (11:45)
--- NOTE | 2017-06-28 14:06 | Discharge Summary ---
Discharge Summary Date of Service Jun 28, 2017. Discharge Summary Admission Date: Jun 24, 2017 at 15:59 Discharge Date: Jun 28, 2017 Discharge Disposition: Home Principal Diagnosis: Intractable nausea and vomiting Problems/Secondary Diagnoses: Medical Problems: (1) DM II (diabetes mellitus, type II), controlled (2) GERD (gastroesophageal reflux disease) (3) Glaucoma (4) HLD (hyperlipidemia) (5) HTN (hypertension) (6) Intractable nausea and vomiting (7) MYRIAM on CPAP (8) Osteoarthritis (9) Squamous cell cancer of epiglottis Surgical Problems: (1) S/P percutaneous endoscopic gastrostomy (PEG) tube placement Procedures: SINGLE VIEW CHEST 06/24/17 IMPRESSION: Cardiomegaly and emphysema with no acute cardiopulmonary abnormality. MRI OF THE BRAIN COMBO 06/24/17 IMPRESSION: 1. No acute intracranial abnormality. 2. There is no evidence of intracranial metastatic disease. Consultations: Heme/onc Medication Reconciliation New Medications: Fluconazole (Diflucan) 200 Mg Tab 1 TAB PO DAILY for 6 Days, #6 TAB Ciprofloxacin (Ciprofloxacin HCl) 500 Mg Tab 500 MG PEG BID for 6 Days, #12 TAB Start tonight, Finish on 07/04/17. Changed Medications: Oxycodone/Acetaminophen 5MG/325MG (Percocet 5MG/325MG) Tab 2 TABLETS PO Q4H PRN for Pain for 7 Days, #50 TAB (Changed from: Q12) PAIN Continued Medications: Acetaminophen Tab (Tylenol) 325 Mg Tab 650 MG PO Q6H PRN for Pain, TAB Atenolol (Tenormin) 25 Mg Tab 25 MG PO QPM, TAB Dapagliflozin Propanediol (Farxiga) 10 Mg Tab 1 TAB PO QPM Finasteride (Proscar) 5 Mg Tab 5 MG PO HS, TAB Insulin Glargine (Lantus) 100 Unit/Ml Inj 35 UNITS SC QAM Losartan Potassium (Cozaar) 50 Mg Tab 50 MG PO QPM, TAB Metformin Hcl (Glucophage) 500 Mg Tab 500 MG PO BID, TAB Metformin Hcl (Glucophage) 1,000 Mg Tab 1000 MG PO BID, TAB Multivitamin (Multivitamin) Tab 1 TAB PO DAILY, TAB Omeprazole (Prilosec) 20 Mg Capcr 20 MG PO BID, CAP Polyethylene Glycol 3350 (Miralax) 1 Pow Pow 17 GM PO DAILY Psyllium (Metamucil) 48.57 % Pow 1 TSP PO DAILY Ropinirole (Requip) 0.5 Mg Tab 0.5 MG PO HS, TAB Rosuvastatin Calcium (Crestor) 20 Mg Tab 20 MG PO HS, TAB Tamsulosin Hcl (Flomax) 0.4 Mg Cap 0.4 MG PO HS, CAP Temazepam (Restoril) 30 Mg Cap 30 MG PO HS, CAP Timolol Maleate (Timolol 0.5% Oph Soln 15 Ml) 15 Ml Soln 1 DROP OPB QAM Travoprost (Travatan Z) 0.004 % Trevon 1 DROPS OPB HS Zinc Sulfate (Zinc Sulfate) 220 Mg Cap 220 MG PO DAILY, CAP [Vitamin C] () 1 TAB PO DAILY Discontinued Medications: Fentanyl (Duragesic) 50 Mcg Tdsy 50 MCG TD [id number], PATCH Discharge Exam The patient was seen and examined this morning. Patient reports feeling well. He denies any nausea this morning. He is tolerating to tube feeds without any difficulty, initiated yesterday by nursing. Patient denies increased drainage around the PEG tube site. Discontinue fentanyl indefinitely. Patient reports his pain is well-controlled with Percocet at increased frequency. Discussion was held regarding increasing Lantus pending his blood sugar readings at home. The patient has only been requiring Lantus at half dose, 17 units at bedtime while here in the hospital. In his metformin has been held on admission. He expresses understanding of using a half dose against night of Lantus while restarting metformin. Tomorrow he may attempt a full dose of Lantus if his blood sugars are greater than 160 throughout the day with each meal check. ROS: Constitutional: No fever, sweats or chills Eyes: No diplopia, no worsening or blurred vision ENT: normal hearing, no trouble swallowing Respiratory: No cough, sputum, dyspnea at rest or on exertion Cardiovascular: No chest pain, tightness or palpitations Abdomen: No pain, nausea, vomiting, diarrhea or constipation Musculoskeletal: No joint pain, calf pain, swelling Neurologic: No weakness, numbness/tingling, or balance problems Psychiatric: No anxiety or depression Skin: No rash or itch Physical exam: General: awake, alert, + mild distress Head: Normocephalic, atraumatic ENT: PERRL, EOMI, no pharyngeal exudate, mucous membranes dry, + oral candidiasis improving, + small red areas in posterior pharynx, erythema over the neck Chest: Clear to auscultation, on room air, no adventitious breath sounds, + Mediport in left chest wall accessed Cardiac: Regular rate and rhythm, soft systolic murmur, no JVD, normal peripheral pulses, good capillary refill Abdominal: NABS x 4 quadrants, + PEG tube in place, +improved surrounding erythema -minimal, no drainage from around PEG tube, soft, nontender to palpation, no rebound, guarding or tenderness Extremities: Normal inspection, no peripheral edema or erythema, calfs nontender to palpation Psych: Normal mood and affect Neuro: AAO x 3, speech is clear, no peripheral sensory deficits Hospital Course This is a 76 yo M with PMHx of SCC of the epiglottis T2, M2 C stage IV, originally diagnosed on 04/04/17 currently undergoing cisplatin and XRT which began on 05/28/17 and is followed by Dr. Costello. Completed 3 sessions of chemo so far, XRT daily x 3 weeks at time of admission. Other PMHx includes HTN, HLD, BPH, DM II, GERD, and restless leg syndrome. SCC of the epiglottis T2, M2 C stage IV Intractable nausea and vomiting Severe Protein Calorie Malnutrition - Admit to [facility] - Oncology consulted, patient follows with Dr. Costello as an outpatient - appreciate recs - Nausea improved - continue Zofran 8 mg IV Q4H, Compazine 10 mg IV q6h, Reglan IV Q6H - will d/c phenergan as overnight the patient became very confused with administration. - Fentanyl patch likely caused worsening n/v - as improved with holding, pain control with percocet 2 tab Q4H prn pain - MRI brain combo negative for mets - Peg tube with increased erythema and drainage from around the tube -wound culture is initially growing out probable Pseudomonas species- will be covered by Cipro tabs as per UTI - ask PCP to follow - was on D5W at 80mL/hr until tolerated tube feeds dietitian consult as the patient uses Nutren 2.0 supplemental tube feedings, 4oz Q2H Patient has a weight loss of 18 pounds since beginning chemotherapy at end of May. - PT/OT Oral Candidiasis - Continue diflucan IV 200 mg daily started on 06/24 -continue 200 mg 6 more days by mouth to complete a ten-day course - Continue magic swizzle for pain Escherichia coli UTI -Continue on Cipro 500 mg BID 6 more days to complete a seven-day course. Wound culture growing out Pseudomonas species from around the PEG tube which Cipro will also cover. SAHIL - resolved, Cr. back to baseline - cont lovenox subq daily -Resume metformin starting tonight, was held during admission. DM type II - Lantus 12 U HS, D5W on board while patient was not tolerating tube feeds: Discussed with the patient regarding increasing Lantus to 17 units HS tonight, and closely following blood sugar checks tomorrow and possible increased back to home dosing of 35 units HS on 06/29. - ISS with Accu-Cheks ACHS MYRIAM ion CPAP - Will order in house CPAP machine, patient does not wear supplemental O2 at baseline HTN - continue losartan 25 mg daily Hyperlipidemia - Continue Crestor 20 mg daily BPH - Continue Flomax 5 mg daily GERD - Continue Prilosec 20 mg daily DVT ppx: heparin, teds, scds CODE STATUS: DO NOT RESUSCITATE, this was discussed with the patient and his at bedside Disposition: Discharged home today. Total Time Spent: Greater than 30 minutes This includes examination of the patient, discharge planning, medication reconciliation, and communication with other providers. Discharge Instructions Please refer to the electronic Patient Visit Report (Discharge Instructions) for additional information. Follow-Up Follow up with your Primary Care Provider within 1-2 weeks. Follow-up with hematology/oncology within 1 week. Additional Copies To Cali Haines M.D.
== END 2017-06-28 11:56 | disposition home or self-care (01) | DRG 157 ==
LOC: C.EDB 13:16 → C.4E 15:59 → EDBEDREQ 16:08 → ENRESERV 16:13
PROVIDERS: ADMIT Family Medicine; ATTEND Internal Medicine
DX: B37.0 Candidal stomatitis (principal); E43 Unspecified severe protein-calorie malnutrition; N39.0 Urinary tract infection, site not specified; E87.1 Hypo-osmolality and hyponatremia; L03.90 Cellulitis, unspecified; R11.2 Nausea with vomiting, unspecified; T40.4X5A Adverse effect of other synthetic narcotics, initial encounter; B96.20 Unspecified Escherichia coli [E. coli] as the cause of diseases classified elsewhere; B96.5 Pseudomonas (aeruginosa) (mallei) (pseudomallei) as the cause of diseases classified elsewhere; E83.42 Hypomagnesemia; R19.7 Diarrhea, unspecified; C32.1 Malignant neoplasm of supraglottis; E11.9 Type 2 diabetes mellitus without complications; G47.33 Obstructive sleep apnea (adult) (pediatric); K21.9 Gastro-esophageal reflux disease without esophagitis; H40.9 Unspecified glaucoma; I10 Essential (primary) hypertension; E78.5 Hyperlipidemia, unspecified; N40.0 Benign prostatic hyperplasia without lower urinary tract symptoms; G25.81 Restless legs syndrome; Z51.81 Encounter for therapeutic drug level monitoring; Z79.899 Other long term (current) drug therapy; Z79.4 Long term (current) use of insulin; Z66 Do not resuscitate; Z93.4 Other artificial openings of gastrointestinal tract status; Z87.891 Personal history of nicotine dependence; Z80.1 Family history of malignant neoplasm of trachea, bronchus and lung; Z83.3 Family history of diabetes mellitus; Z80.42 Family history of malignant neoplasm of prostate; Z83.6 Family history of other diseases of the respiratory system

== ENCOUNTER → 2017-08-22 | Outpatient (CLI) | payer MEDICARE ==
[~2017-08-22] MED LIST changes: +ACET-1693 PO; -ACET325T96 PO; -FNTTP50 TD; -GLC/500 PO; +ONDA8TAB62 SL; -PSYL48.59 PO
[2017-08-22 13:17] VITALS: BP 102/69; PULSE 96; TEMP 36.9; O2SAT 96
--- NOTE | 2017-08-22 15:23 | Radiation Oncology Follow-Up ---
Radiation Oncology Follow-Up Date of Visit Aug 22, 2017. Reason For Visit One month follow up Radiation Completion Date 07/31/17 Diagnosis (1) Squamous cell cancer of epiglottis Status: Acute Onset Date: 04/04/2017 Histology Subtype: Squamous cell carcinoma Stage: IV Permanent Comment: Sore throat Status post laryngoscopy and biopsies April 04, 2017 Squamous cell carcinoma of the epiglottis Clinical stage T2 N2b M0 Definitive combined radiation and chemotherapy Chemotherapy held due to side effects Radiation therapy completed July 31, 2017. He received 6996 cGy utilizing volumetric modulated arc therapy. Last Edited By: Joyce Ordaz on Aug 06, 2017 11:28 History of Present Illness Mr. Ewing presented with a sore throat and was seen by his PCP Dr. Haines. With conservative measures did not help patient was seen by Dr. Bowen with a complaint of persistent sore throat. Ultimately a direct laryngoscopy was performed on 04/04/2017. The examination revealed erythema at the distal esophagus consistent with a Colon's esophagus but no other lesions were appreciated. The vallecula, pyriform sinus and post cricoid areas were visualized and were normal. The endolarynx was inspected and also noted to be normal. On the left side of the laryngeal surface of the epiglottis there was a 2 cm lesion was exophytic consistent with a carcinoma. The vallecular surface of the epiglottis was normal as was the base of tongue. Multiple biopsies were taken. The epiglottic tumor was exophytic and was noted to be approximately 1.5-2 cm in size involving the left half of the laryngeal surface of the epiglottis extending more superiorly towards the tip of the epiglottis but did not wrap around to the lingual side. The biopsy of the anterior commissure was negative for dysplasia or carcinoma. Biopsy of the left false vocal cord was negative for dysplasia and carcinoma. Biopsy of the right false vocal cord was negative for dysplasia and carcinoma. Biopsy of the epiglottis revealed a moderately differentiated invasive keratinizing squamous cell carcinoma with no perineural or lymphovascular invasion identified. Biopsy of the base of tongue on the right and left were negative for dysplasia and carcinoma. The biopsy was fragmented and there was extensive necrosis so no assessment of the depth of invasion couldn't be made. AP 16 immunohistochemical staining was performed. There was some staining which was fairly strong however was also focal with an estimate of less than 5% of the cell staining. Although no clear consensus in the literature exists many studies require 70% of the cells to show strong staining to consider the tumor positive for PAC 16. Based on this the study was interpreted as negative. Case: [id number]. Patient underwent a PET/CT scan for staging purposes performed on 04/17/2017. There was asymmetric thickening of the left aspect of the epiglottis with a corresponding mass that measured approximately 2.8 x 1.3 cm. There was marked FDG uptake within SUV max of 13.5. Also noted was an FDG avid left level II lymph node measuring 1.1 x 0.8 cm and an SUV max of 6.6. An additional left level II lymph node was also noted measuring 1.4 x 1.1 cm with marked FDG uptake and an SUV max of 6.2. There was a normal sized right level II lymph node measuring 1.0 x 0.8 cm with mild cortical thickening. FDG uptake and an SUV max of 4.8. No additional suspicious cervical lymph nodes were identified. In the chest region and a prominent right paratracheal lymph node measuring 0.9 cm was noted but having no FDG uptake and thus likely benign. There was marked at cardiomegaly. There was moderate emphysema. There was no suspicious FDG uptake noted within the chest. There was no abnormal FDG uptake noted within the abdomen or the pelvis. There was no suspicious skeletal uptake identified. The patient has noted some difficulty with eating and is requiring to take small bites into use frequent liquids to wash the food down. He is also having pain with swallowing and even without swallowing. Today the patient however has been able to maintain his weight with no weight loss noted. We were asked to see the patient to evaluate him for definitive chemoradiation. He completed his radiation therapy July 31, 2017. He received 6996 cGy. Chemotherapy was stopped early due to side effect Interim History He continues to have all nutrition through the PEG tube. He is using 4 cans per day. He has had a 3 pound weight loss over the past month. He continues to have pain with swallowing. He has been able to stop the fentanyl patch as well as the Percocet pills. He gives the pain with swallowing of 4-5. He has issues with nausea. The smell of food causes nausea. He continues to use his anti-emetics once or twice a day. Occasionally he will have vomiting. He is concerned to try to swallow any foods. Over the past week he has had a increasing sound noted in his throat with breathing. He is noted no swelling or masses of the neck. There is no complaint of ear pain. He has had no fever or chills. Allergies Coded Allergies: Shellfish (Verified Allergy, Intermediate, FACIAL SWELLING, 06/24/17) Penicillins (Verified Allergy, Unknown, ? REMEMBER, 06/24/17) Home Medications Scheduled Atenolol (Tenormin), 25 MG PO QPM Dapagliflozin Propanediol (Farxiga), 1 TAB PO QPM Finasteride (Proscar), 5 MG PO HS Insulin Glargine (Lantus), 35 UNITS SC QAM Losartan Potassium (Cozaar), 50 MG PO QPM Metformin Hcl (Glucophage), 3,000 MG PO BID Omeprazole (Prilosec), 20 MG PO BID Polyethylene Glycol 3350 (Miralax), 17 GM PO DAILY Ropinirole (Requip), 0.5 MG PO HS Rosuvastatin Calcium (Crestor), 20 MG PO HS Tamsulosin Hcl (Flomax), 0.4 MG PO HS Temazepam (Restoril), 30 MG PO HS Timolol Maleate (Timolol 0.5% Oph Soln 15 Ml), 1 DROP OPB QAM Travoprost (Travatan Z), 1 DROPS OPB HS Scheduled PRN Acetaminophen Tab (Tylenol), 650 MG PO Q6H PRN for Pain Ondansetron Odt (Zofran Odt), 8 MG SL Q6H PRN for Nausea Oxycodone/Acetaminophen 5MG/325MG (Percocet 5MG/325MG), 2 TABLETS PO Q4H PRN for Pain Review of Systems Gastrointestinal: Symptoms: Nausea, Vomiting, Diarrhea GI Comments: Diarrhea over past couple weeks;6 BMs/day;using kaopectate; Oral: Symptoms: Scant Saliva/Dry Mouth Other Oral Symptoms: Unsure about taste because isn't taking PO Respiratory: Symptoms: Moist Cough Sputum Character: Mucusy phlegmy cough frequently; Other Respiratory: Raspy sounding voice; Urinary: Symptoms: WNL Skin: Symptoms: No Problems Other Skin Symptoms: Dry skin around neck; Additional Notes: He completed a distress management report and answered "no" to all questions other than he is concerned about eating, pain, and his medical treatment choices. Physical Exam Vital Signs Date Time Temp Pulse Resp B/P (MAP) Pulse Ox O2 Delivery O2 Flow Rate FiO2 08/22/17 13:17 36.9 96 16 102/69 96 Fatigue: Mild General Appearance: no apparent distress Eyes: normal inspection, EOMI ENT: normal ENT inspection, hearing grossly normal, pharynx normal, + pertinent finding (There is an audible sound of the throat with breathing.) Neck: no adenopathy, thyroid normal Cardiovascular: regular rate, rhythm, no gallop, no murmur Abdomen: non tender, soft, no organomegaly Extremities: no pedal edema Neurologic/Psychiatric: no motor/sensory deficits, alert, + depressed affect Pain Management Patient Reports Pain: Yes Pain Location: Sore throat sensation deep in throat Patient Preferred Pain Scale: 0 - 10 Initial Pain Intensity: 5.0 Pain Management Plan This is with swallowing. Currently is taking no pain medications. There have been issues with side effects to the pain medications. Laboratory Laboratory Results: not applicable Pathology Pathology Results: were reviewed, and pertinent findings noted in HPI Imaging Imaging Studies: were reviewed, and pertinent findings noted in HPI Assessment & Plan Plan: The patient was seen and examined by Dr. Monge. His case was also discussed with his ENT specialist . He will get a follow-up appointment. He continues to follow up with Dr. Costello. Today we gave him a Medrol dose pack. This should help with any swelling he may be having. This will help with pain. He was instructed to go the emergency room if he does not improve. We do plan to call and get an update. He is also going to be referred back to speech therapy to be evaluated in regards to swallowing. We asked him to return to our office in 3 months. May call if there are questions or concerns in the interim. Assessment & Plan (Attending) I agree with note created by Joyce Ordaz PA-C. I reviewed the patient's chart and information with her. I have examined and evaluated the patient. I reviewed relevant clinical information and answered the patient's and/or family' s questions. AIRCRAFT PAINTER APPRENTICE Total Time In Follow-Up I spent 20 minutes speaking to the patient and performing examination. I spent 15 minutes reviewing information and completing this note. Total Time (Attending) In Follow-Up I spent 15 minutes examining and counseling the patient. AIRCRAFT PAINTER APPRENTICE Copy To Sara Bowen M.D.; Cali Haines M.D.; Odilon Monreal D.O.
== END | disposition home or self-care (01) ==
LOC: C.ONC 12:53
PROVIDERS: ATTEND Physician Assistant Medical
DX: Z08 Encounter for follow-up examination after completed treatment for malignant neoplasm (principal); Z92.3 Personal history of irradiation; Z85.89 Personal history of malignant neoplasm of other organs and systems

== ENCOUNTER → 2018-01-13 | Outpatient (CLI) | payer MEDICARE ==
[~2018-01-13] MED LIST changes: +ASCA500 PO; +ASPI81TA28 PO; -MULT-506 PO; +MULTTAB5 PO; -ONDA8TAB62 SL; -OXYC-57 PO; -VITAMIN C PO
--- NOTE | 2018-01-13 11:10 | DIAGNOSTIC IMAGING REPORT ---
PET/CT CLINICAL HISTORY: Head and neck cancer. Squamous cell carcinoma of the epiglottis. COMPARISON STUDY: PET/CT dated 04/17/2017. CT scan of the neck dated 12/12/2017. TECHNIQUE: One hour following the IV administration of 11.76 mCi of F-18 FDG, PET/CT examination was performed from the vertex line through the bony pelvis. Additional high-resolution imaging was performed through the head and neck. Noncontrast CT is performed for the purposes of anatomic correlation and attenuation correction. Note that this does not reflect a diagnostic CT examination. Images were reviewed on a separate [employer] independent workstation. Fused images were obtained. Standard uptake values reported are maximum values within the region of interest expressed in gm/mL. FINDINGS: PET FINDINGS: Head and neck: There is expected physiologic activity within the brain parenchyma and the salivary glands. There is significant circumferential pharyngeal soft tissue thickening and edema identified centered around the epiglottis. This demonstrates a maximum SUV of 6.4. Focal activity in the anterior floor of the mouth seen on image #57 demonstrates a maximum SUV of 9.6 and is likely related to salivary activity and dentures. The FDG avid cervical chain lymph nodes as seen on 04/17/2017 are no longer apparent. No pathologically enlarged or FDG avid lymph nodes are seen in the neck. There is dermal thickening/edema with diffuse low-level dermal activity in the anterior neck with a maximum SUV of 2.1. This is likely treatment related. Activity in the tracheostomy is likely inflammatory and demonstrates a maximum SUV of 3.7. Thorax: Evaluation of the thorax demonstrates expected physiologic myocardial activity. There is a 1.7 x 1.3 cm right peritracheal lymph node seen on image #93. This was not demonstrably FDG avid. No additional enlarged mediastinal lymph nodes are identified. Abdomen and pelvis: There is expected activity within the liver, spleen, kidneys, renal collecting system, and bladder. Low-level bowel activity is likely within physical limits. Unenhanced CT images: The brain parenchyma is normal as visualized. Mucosal thickening is noted in the left maxillary antrum. The remaining paranasal sinuses and the mastoid air cells are clear. The bony orbits are intact. Orbital contents are normal in appearance noting bilateral ocular lens implants. The salivary and thyroid glands are normal as imaged. A tracheostomy is in place. There is a left subclavian central venous infusion port. There is advanced atherosclerotic calcification of the thoracic aorta which is normal in caliber. Emphysematous change is identified. There is no airspace consolidation or pleural effusion. Scarring/atelectasis is present at both lung bases. No pleural effusion is identified. There is no hilar or axillary lymphadenopathy. A tiny hiatal hernia is observed. The unenhanced liver, spleen, and adrenal glands are normal as visualized. There are calcified gallstones. The pancreas is atrophic. The kidneys to insert cortical atrophy and are without hydronephrosis. There are numerous bilateral renal cysts which measure up to 7 cm. There is advanced atherosclerotic calcification and ectasia of the abdominal aorta. A gastrostomy tube is in place. No bowel obstruction is seen. A normal appendix is identified. Moderate colonic fecal retention is observed. There is mild colonic diverticulosis without CT evidence of acute diverticulitis. No intraperitoneal free air or abdominal ascites is seen. There is no abdominal, pelvic, or inguinal lymphadenopathy. The prostate gland is diminutive. The bladder is normal as visualized. The skeletal structures are osteopenic. Degenerative changes noted throughout the spine. No lytic or blastic lesion is seen. IMPRESSION: 1. There is circumferential pharyngeal soft tissue thickening and edema centered around the epiglottis. This demonstrates significant FDG activity, and is likely treatment related due to radiation therapy. Residual tumor is not excluded and continued attention at follow-up is recommended. 2. No pathologically enlarged or FDG avid cervical lymph nodes are identified. The FDG avid cervical nodes as seen on 04/17/2017 are no longer apparent. 3. Dermal thickening/edema with associated FDG activity is also likely treatment related. 4. There is no evidence of distant metastatic disease. 5. Emphysema. 6. Cholelithiasis. 7. Additional findings as above. Electronically signed by: Rodger Lowery M.D. 01/13/2018 11:09 AM Dictated Date/Time: 01/13/2018 10:22 AM
== END | disposition home or self-care (01) ==
LOC: C.PET 08:05
PROVIDERS: ATTEND Internal Medicine Hematology & Oncology
DX: C10.1 Malignant neoplasm of anterior surface of epiglottis (principal); Z92.3 Personal history of irradiation; J43.9 Emphysema, unspecified; K80.20 Calculus of gallbladder without cholecystitis without obstruction